=== PATIENT | male | born 1935 | race Caucasian/White ===

== ENCOUNTER 2018-10-23 15:09 | Inpatient (IN) | payer MEDICARE ==
[~2018-10-23] VITALS: Ht 152.4 cm; Wt 59.4 kg
[~2018-10-23 15:09] MED LIST: AMLO10TA4 PO; FLUT1DIS3 INH; LIDO700A4 TD; PANT40TA5 PO
[2018-10-23] MEDS ORDERED: MORPHINE SULFATE 10 MG/ML VIAL. IV ONE ×2 (15:30→17:00)
[2018-10-23] MEDS ORDERED: ONDANSETRON PF 4 MG/2 ML VIAL. IV ONE (15:30)
[2018-10-23 15:38] LABS: BASO # 0.1 x10^3/uL (0.0-0.2); BASO % 1 % (0-3); EOS # 0.2 x10^3/uL (0.0-0.7); EOS % 2 % (0-3); HEMATOCRIT 35.3 % (39.0-53.0); HEMOGLOBIN 11.9 g/dL (13.0-17.5); LYMPH # 1.3 x10^3/uL (1.0-4.8); LYMPH % 16 % (24-48); MEAN CORPUSCULAR HEMOGLOBIN 31 pg (25-35); MEAN CORPUSCULAR HGB CONC 34 g/dL (31-37); MEAN CORPUSCULAR VOLUME 91 fL (79-100); MONO % 11 % (0-9); NEUT % 70 % (31-73); PLATELET COUNT 365 x10^3/uL (140-400); RED BLOOD COUNT 3.87 x10^6/uL (4.30-5.70); RED CELL DISTRIBUTION WIDTH 14.7 % (11.5-14.5); WHITE BLOOD COUNT 8.5 x10^3/uL (4.0-11.0)
[2018-10-23 15:51] LABS: CALCIUM 9.7 mg/dL (8.5-10.1); CREATININE 1.2 mg/dL (0.7-1.3); GFR 58.1; POTASSIUM 4.4 mmol/L (3.5-5.1)
--- NOTE | 2018-10-23 15:55 | RAD ---
PORTABLE CHEST 1V History: Weakness, nausea, abdominal pain Comparison: June 24, 2015 Findings: 2 AP views of the chest are submitted. There is no new lobar consolidation, pleural fluid, pneumothorax. Heart size is stable, within normal limits. There is some atherosclerotic calcification near aortic arch. There is again suspected emphysema. Impression: 1. There is suspected emphysema, no significant infiltrate. Electronically signed by: Zac Meek MD (10/23/2018 3:53 PM) [id number]
[2018-10-23 15:57] LABS: ALBUMIN 2.8 g/dL (3.4-5.0); ALBUMIN/GLOBULIN RATIO 0.5 (1.0-1.7); MAGNESIUM 1.9 mg/dL (1.8-2.4); TOTAL BILIRUBIN 0.5 mg/dL (0.2-1.0)
[2018-10-23 16:03] LABS: CREATINE KINASE 34 U/L (39-308)
--- NOTE | 2018-10-23 16:13 | RAD ---
CT head and cervical spine without contrast History: Fall 3 weeks ago Technique: Noncontrast CT imaging was performed of the head and cervical spine. Multiplanar reconstruction images are submitted. Exposure: One or more of the following individualized dose reduction techniques were utilized for this examination: 1. Automated exposure control 2. Adjustment of the mA and/or kV according to patient size 3. Use of iterative reconstruction technique. Head CT Comparison: October 09, 2014 Findings: No acute intracranial hemorrhage is identified. There is no intra-axial mass effect or midline shift. There is now some encephalomalacia with cortical involvement of the left parietal lobe. There has been progression of multifocal ill-defined low-density of the supratentorial parenchyma bilaterally. There are old lacunar infarcts of the bilateral basal ganglia as seen previously although somewhat more apparent of the left lentiform nucleus on this exam. There is atherosclerotic calcification of the carotid siphons bilaterally. Ventricular size is considered within normal limits. Visualized paranasal sinuses are overall aerated. Mastoid air cells are aerated. No recent calvarial fracture is identified. Impression: 1. There is no evidence of acute intracranial hemorrhage. 2. There is multifocal ill-defined low-density of the supratentorial parenchyma, nonspecific findings probably related to chronic microvascular ischemic disease. 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 Cervical spine CT Comparison: None Findings: No acute cervical spine fracture is identified. Vertebral body stature is overall preserved. There is [id number] reversal of the lordotic curvature centered near C4. There is fairly advanced degenerative disc disease C2-3 through C6-7 with multilevel spondylosis at the same levels. There is likely multilevel borderline central canal stenosis greatest C3-4 through C5-6. There is multilevel facet and uncovertebral degenerative change contributing to multilevel cervical neural foramina compromise. There is more significant narrowing of the bilateral C3-4, C4-C5, C5-C6, C6-7 neural foramina, mild to moderate narrowing on the right at C2-3. Atlanto-axial distance is within normal limits. There is appropriate alignment of lateral masses of C1 relative to C2. Occipital condylar-C1 relationship is maintained. There is some atherosclerotic calcification of the carotid arteries in the neck. There is emphysema of the visualized lung apices, also some subpleural density bilaterally more likely component of fibrotic change. Impression: 1. No acute cervical spine fracture is identified. 2. There is multilevel cervical neural foramina compromise due to multilevel facet and uncovertebral degenerative change. 3. There is multilevel cervical degenerative disc disease and spondylosis. 4. There is emphysema of the visualized lung apices. Electronically signed by: Zac Meek MD (10/23/2018 4:10 PM) [id number]
[2018-10-23] MEDS ORDERED: IV NORMAL SALINE 1000ML BAG 1,000 ML IV ONE ×2 (16:30→17:45)
--- NOTE | 2018-10-23 16:33 | EKG ---
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
[2018-10-23] MEDS ORDERED: CONTRAST GIVEN. MC PRN (16:45)
[2018-10-23] MEDS ORDERED: IOHEXOL 300 MG/ML 100ML VIAL. IV ONE (16:45)
[2018-10-23 16:50] LABS: AMPHETAMINE/METHAMPHETAMINE NEG (NEG); BARBITURATES NEG (NEG); BENZODIAZEPINES NEG (NEG); CANNABINOIDS NEG (NEG); COCAINE NEG (NEG); METHADONE NEG (NEG); OPIATES POS (NEG); PHENCYCLIDINE NEG (NEG)
--- NOTE | 2018-10-23 17:19 | RAD ---
CT abdomen pelvis with contrast dated 10/23/2018. Comparison made to 06/24/2015. CLINICAL INDICATION: Abdominal pain and vomiting. TECHNIQUE: Contiguous axial imaging and pelvis performed after the intravenous administration of 60 cc Omnipaque 300. One or more of the following individualized dose reduction techniques were utilized for this examination: 1. Automated exposure control 2. Adjustment of the mA and/or kV according to patient size 3. Use of iterative reconstruction technique FINDINGS: There is mild inflammatory stranding surrounding the pancreatic body and tail region. There is dilation of the distal pancreatic duct that has progressed from the prior study. There is also mild dilation of the proximal pancreatic duct that is new from prior exam. No definite mass. No adjacent fluid collection. There are couple well-circumscribed low-density foci at the hepatic dome that are unchanged. No biliary ductal dilatation. Gallbladder unremarkable. Spleen is normal in size. Adrenal glands and kidneys are unremarkable. No hydronephrosis. The left kidney is atrophic and there is a 3 mm calcific stone at the lower pole, unchanged. Well-circumscribed low-density foci at the lower pole right kidney, likely cyst. No hydronephrosis. Unopacified GI tract normal in caliber and contour. No focal bowel wall thickening. No inflammatory stranding in the mesentery. The appendix is normal in caliber. No ascites or lymphadenopathy. Abdominal aorta normal in caliber. Images the pelvis show mildly distended urinary bladder. Prostate gland is mildly enlarged. No free pelvic fluid or pelvic lymphadenopathy. Bone windows show no acute findings. Multilevel spondylosis. Limited images of lung bases are clear. Heart size within normal limits. No pleural or pericardial effusion. IMPRESSION: 1. There is mild inflammatory stranding surrounding the pancreas, nonspecific. Could be related to acute pancreatitis. Correlate clinically. 2. Progressive dilation of the pancreatic duct relative to the 2016 exam. This is of uncertain etiology and could be related to chronic pancreatitis. Underlying cystic mass or IPMN not excluded. MRI with and without contrast would better evaluate. 3. Left-sided nephrolithiasis, nonobstructive. 4. Normal appendix. Electronically signed by: Branden Olea MD (10/23/2018 5:16 PM) [facility]
--- NOTE | 2018-10-23 17:36 | PHYS DOC ---
Past Medical History Past Medical History: Arthritis, GERD, High Cholesterol, Hypertension Past Surgical History: Other Additional Past Surgical Histo: Pt had EGD "& no ulcer or anything", TOE, HERNIA Alcohol Use: None Drug Use: None Adult General Chief Complaint Chief Complaint: ABDOMINAL PAIN HPI HPI Recommended. Patient is a 83 year old male with history of hypertension, arthritis, acid reflex, presents to the ED today with multiple complaints. Patient is complaining of generalized abdominal pain with nausea and vomiting for a couple days. He is a poor historian. He states he used to drink but he can't remember the last time he had any alcohol. Denies any diarrhea. Denies any hematemesis or melena. He is also complaining of mild left lateral neck pain, posterior head pain status post falling 3 days ago while changing a tire. Unable to describe the pain. Patient unable to describe anything that alleviates or relieves his symptoms. Patient was brought to the emergency room by EMS, EMS reports patient has a very dirty and unkept home. 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 He states he lives in a makeshift closet. Patient states he has not taken a bath or shower for 8 months. Review of Systems Review of Systems Constitutional: Denies fever or chills [] Eyes: Denies change in visual acuity, redness, or eye pain [] HENT: Denies nasal congestion or sore throat [] Respiratory: Denies cough or shortness of breath [] Cardiovascular: No additional information not addressed in HPI [] GI: Reports abdominal pain, nausea and vomiting, denies bloody stools or diarrhea [] : Denies dysuria or hematuria [] Musculoskeletal: Denies back pain or joint pain [] Integument: Denies rash or skin lesions [] Neurologic: Denies headache, focal weakness or sensory changes [] Psych: Reports living in a dirty environment All other systems were reviewed and found to be within normal limits, except as documented in this note. Current Medications Current Medications Current Medications Medications (Trade) Dose Ordered Sig/Aleksandra Start Time Stop Time Status Last Admin Dose Admin Info (CONTRAST GIVEN -- Rx MONITORING) 1 each PRN DAILY PRN 10/23/18 16:45 10/25/18 16:44 Iohexol (Omnipaque 300 Mg/ml) 60 ml 1X ONCE 10/23/18 16:45 10/23/18 16:46 DC 10/23/18 17:05 60 ML Morphine Sulfate (Morphine Sulfate) 4 mg PRN Q2HR PRN 10/23/18 17:45 10/24/18 17:44 UNV Nitroglycerin (Nitrostat) 0.4 mg PRN Q5MIN PRN 10/23/18 17:45 10/24/18 17:44 UNV Ondansetron HCl (Zofran) 4 mg PRN Q8HRS PRN 10/23/18 17:45 10/24/18 17:44 UNV Sodium Chloride 1,000 ml @ 125 mls/hr 1X ONCE 10/23/18 17:45 10/24/18 01:44 UNV Allergies Allergies Allergies Coded Allergies Type Severity Reaction Last Updated Verified No Known Drug Allergies 08/01/13 No Physical Exam Physical Exam Constitutional: Well developed, well nourished, no acute distress, non-toxic appearance. [] HENT: Normocephalic, atraumatic, bilateral external ears normal, oropharynx moist, no oral exudates, nose normal. [] Eyes: PERRLA, EOMI, conjunctiva normal, no discharge. [] Neck: Normal range of motion, slight paraspinal muscle tenderness on the left cervical spine, no midline cervical spine tenderness, supple, no stridor. [] Cardiovascular:Heart rate regular rhythm, no murmur [] Lungs & Thorax: Bilateral breath sounds clear to auscultation [] Abdomen: Bowel sounds normal, soft, diffuse tenderness throughout the abdomen, no specific point tenderness to the left upper, right lower or right upper quadrant, no masses, no pulsatile masses. [] Skin: Warm, dry, no erythema, no rash. [] Back: No tenderness, no CVA tenderness. [] Extremities: No tenderness, no cyanosis, no clubbing, ROM intact, no edema. [] Neurologic: Alert and oriented X 3, normal motor function, normal sensory function, no focal deficits noted. Cranial nerves II through XII intact Psychologic: Flat affect with depressed mood Current Patient Data Vital Signs Vital Signs Date Time Temp Pulse Resp B/P (MAP) Pulse Ox O2 Delivery O2 Flow Rate FiO2 10/23/18 15:10 98.2 77 18 132/93 (106) 98 Room Air 98.2 Lab Values Laboratory Tests Test 10/23/18 15:25 10/23/18 16:24 White Blood Count 8.5 x10^3/uL (4.0-11.0) Red Blood Count 3.87 x10^6/uL (4.30-5.70) L Hemoglobin 11.9 g/dL (13.0-17.5) L Hematocrit 35.3 % (39.0-53.0) L Mean Corpuscular Volume 91 fL (79-100) Mean Corpuscular Hemoglobin 31 pg (25-35) Mean Corpuscular Hemoglobin Concent 34 g/dL (31-37) Red Cell Distribution Width 14.7 % (11.5-14.5) H Platelet Count 365 x10^3/uL (140-400) Neutrophils (%) (Auto) 70 % (31-73) Lymphocytes (%) (Auto) 16 % (24-48) L Monocytes (%) (Auto) 11 % (0-9) H Eosinophils (%) (Auto) 2 % (0-3) Basophils (%) (Auto) 1 % (0-3) Neutrophils # (Auto) 6.0 x10^3uL (1.8-7.7) Lymphocytes # (Auto) 1.3 x10^3/uL (1.0-4.8) Monocytes # (Auto) 1.0 x10^3/uL (0.0-1.1) Eosinophils # (Auto) 0.2 x10^3/uL (0.0-0.7) Basophils # (Auto) 0.1 x10^3/uL (0.0-0.2) Sodium Level 137 mmol/L (136-145) Potassium Level 4.4 mmol/L (3.5-5.1) Chloride Level 99 mmol/L (98-107) Carbon Dioxide Level 25 mmol/L (21-32) Anion Gap 13 (6-14) Blood Urea Nitrogen 21 mg/dL (8-26) Creatinine 1.2 mg/dL (0.7-1.3) Estimated GFR (Cockcroft-Gault) 58.1 BUN/Creatinine Ratio 18 (6-20) Glucose Level 95 mg/dL (70-99) Calcium Level 9.7 mg/dL (8.5-10.1) Magnesium Level 1.9 mg/dL (1.8-2.4) Total Bilirubin 0.5 mg/dL (0.2-1.0) Aspartate Amino Transferase (AST) 21 U/L (15-37) Alanine Aminotransferase (ALT) 24 U/L (16-63) Alkaline Phosphatase 164 U/L (46-116) H Creatine Kinase 34 U/L (39-308) L Creatine Kinase MB (Mass) 0.6 ng/mL (0.0-3.6) Creatine Kinase MB Relative Index % (0-4) Troponin I Quantitative 0.200 ng/mL (0.000-0.055) DV-Pjh-T-Type Natriuretic Peptide 3447 pg/mL (0-449) H Total Protein 8.0 g/dL (6.4-8.2) Albumin 2.8 g/dL (3.4-5.0) L Albumin/Globulin Ratio 0.5 (1.0-1.7) L Lipase 1778 U/L (73-393) H Thyroid Stimulating Hormone (TSH) 0.829 uIU/mL (0.358-3.74) Urine Opiates Screen Pos (NEG) Urine Methadone Screen Neg (NEG) Urine Barbiturates Neg (NEG) Urine Phencyclidine Screen Neg (NEG) Urine Amphetamine/Methamphetamine Neg (NEG) Urine Benzodiazepines Screen Neg (NEG) Urine Cocaine Screen Neg (NEG) Urine Cannabinoids Screen Neg (NEG) Urine Ethyl Alcohol Neg (NEG) Laboratory Tests 10/23/18 15:25 Laboratory Tests 10/23/18 15:25 EKG EKG [address] Lambert sinus rhythm HR 67 no STEMI[] Radiology/Procedures Radiology/Procedures []PROCEDURE: CT HEAD AND CERVICAL SPINE WO CT head and cervical spine without contrast History: Fall 3 weeks ago Technique: Noncontrast CT imaging was performed of the head and cervical spine. Multiplanar reconstruction images are submitted. Exposure: One or more of the following individualized dose reduction techniques were utilized for this examination: 1. Automated exposure control 2. Adjustment of the mA and/or kV according to patient size 3. Use of iterative reconstruction technique. Head CT Comparison: October 09, 2014 Findings: No acute intracranial hemorrhage is identified. There is no intra-axial mass effect or midline shift. There is now some encephalomalacia with cortical involvement of the left parietal lobe. There has been progression of multifocal ill-defined low-density of the supratentorial parenchyma bilaterally. There are old lacunar infarcts of the bilateral basal ganglia as seen previously although somewhat more apparent of the left lentiform nucleus on this exam. There is atherosclerotic calcification of the carotid siphons bilaterally. Ventricular size is considered within normal limits. Visualized paranasal sinuses are overall aerated. Mastoid air cells are aerated. No recent calvarial fracture is identified. Impression: 1. There is no evidence of acute intracranial hemorrhage. 2. There is multifocal ill-defined low-density of the supratentorial parenchyma, nonspecific findings probably related to chronic microvascular ischemic disease. 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 Cervical spine CT Comparison: None Findings: No acute cervical spine fracture is identified. Vertebral body stature is overall preserved. There is [id number] reversal of the lordotic curvature centered near C4. There is fairly advanced degenerative disc disease C2-3 through C6-7 with multilevel spondylosis at the same levels. There is likely multilevel borderline central canal stenosis greatest C3-4 through C5-6. There is multilevel facet and uncovertebral degenerative change contributing to multilevel cervical neural foramina compromise. There is more significant narrowing of the bilateral C3-4, C4-C5, C5-C6, C6-7 neural foramina, mild to moderate narrowing on the right at C2-3. Atlanto-axial distance is within normal limits. There is appropriate alignment of lateral masses of C1 relative to C2. Occipital condylar-C1 relationship is maintained. There is some atherosclerotic calcification of the carotid arteries in the neck. There is emphysema of the visualized lung apices, also some subpleural density bilaterally more likely component of fibrotic change. Impression: 1. No acute cervical spine fracture is identified. 2. There is multilevel cervical neural foramina compromise due to multilevel facet and uncovertebral degenerative change. 3. There is multilevel cervical degenerative disc disease and spondylosis. 4. There is emphysema of the visualized lung apices. Electronically signed by: Javad Taylor MD (10/23/2018 4:10 PM) [id number] DICTATED and SIGNED BY: JAVAD TAYLOR MD DATE: 10/23/18 1610 PROCEDURE: PORTABLE CHEST 1V PORTABLE CHEST 1V History: Weakness, nausea, abdominal pain Comparison: June 24, 2015 Findings: 2 AP views of the chest are submitted. There is no new lobar consolidation, pleural fluid, pneumothorax. Heart size is stable, within normal limits. There is some atherosclerotic calcification near aortic arch. There is again suspected emphysema. Impression: 1. There is suspected emphysema, no significant infiltrate. Electronically signed by: Javad Taylor MD (10/23/2018 3:53 PM) [id number] DICTATED and SIGNED BY: JAVAD TAYLOR MD DATE: 10/23/18 1553 PROCEDURE: CT ABD PELV W/ IV CONTRST ONLY CT abdomen pelvis with contrast dated 10/23/2018. Comparison made to 06/24/2015. CLINICAL INDICATION: Abdominal pain and vomiting. TECHNIQUE: Contiguous axial imaging and pelvis performed after the intravenous administration of 60 cc Omnipaque 300. One or more of the following individualized dose reduction techniques were utilized for this examination: 1. Automated exposure control 2. Adjustment of the mA and/or kV according to patient size 3. Use of iterative reconstruction technique FINDINGS: There is mild inflammatory stranding surrounding the pancreatic body and tail region. There is dilation of the distal pancreatic duct that has progressed from the prior study. There is also mild dilation of the proximal pancreatic duct that is new from prior exam. No definite mass. No adjacent fluid collection. There are couple well-circumscribed low-density foci at the hepatic dome that are unchanged. No biliary ductal dilatation. Gallbladder unremarkable. Spleen is normal in size. Adrenal glands and kidneys are unremarkable. No hydronephrosis. The left kidney is atrophic and there is a 3 mm calcific stone at the lower pole, unchanged. Well-circumscribed low-density foci at the lower pole right kidney, likely cyst. No hydronephrosis. Unopacified GI tract normal in caliber and contour. No focal bowel wall thickening. No inflammatory stranding in the mesentery. The appendix is normal in caliber. No ascites or lymphadenopathy. Abdominal aorta normal in caliber. Images the pelvis show mildly distended urinary bladder. Prostate gland is mildly enlarged. No free pelvic fluid or pelvic lymphadenopathy. Bone windows show no acute findings. Multilevel spondylosis. Limited images of lung bases are clear. Heart size within normal limits. No pleural or pericardial effusion. IMPRESSION: 1. There is mild inflammatory stranding surrounding the pancreas, nonspecific. Could be related to acute pancreatitis. Correlate clinically. 2. Progressive dilation of the pancreatic duct relative to the 2016 exam. This is of uncertain etiology and could be related to chronic pancreatitis. Underlying cystic mass or IPMN not excluded. MRI with and without contrast would better evaluate. 3. Left-sided nephrolithiasis, nonobstructive. 4. Normal appendix. Electronically signed by: Branden Olea MD (10/23/2018 5:16 PM) [facility] DICTATED and SIGNED BY: BRANDEN OLEA MD DATE: 10/23/18 4487 Course & Med Decision Making Course & Med Decision Making Pertinent Labs and Imaging studies reviewed. (See chart for details) This is a 83-year-old male patient presenting to the ED today from home with multiple complaints including abdominal pain, nausea, vomiting also complaining of neck and head pain status post falling. No loss of consciousness. Fell 3 weeks ago. Also complaining to be living in a dirty environmental. Has not taken a shower for 8 month See history of present illness. CT of the head and cervical spine are negative. CBC within normal WBC. CMP with no acute findings, lipase 1778, troponin 0.200, patient's previous history shows elevated troponin. He has no chest pain. EKG was negative. Given aspirin and routine consult placed for cardiology CT of the abdomen and pelvic was noted for acute or chronic pancreatitis Negative alcohol in the drug screen. Routine consult placed for GI. Started on IV fluids. Consulted with Dr. Mcnulty who accepted patient for admission Routine consult placed for social insurance analyst Dragon Disclaimer Dragon Disclaimer This electronic medical record was generated, in whole or in part, using a voice recognition dictation system. Departure Departure Impression: Primary Impression: Acute prostatitis Additional Impressions: Need for social insurance analyst intervention Acute cervical sprain Scalp contusion Nausea and vomiting NSTEMI (non-ST elevated myocardial infarction) Disposition: ADMITTED INPATIENT Condition: STABLE (treatment coming up on Monday as she is well aware) Referrals: COLT JAMESON DO (PCP) Problem Qualifiers Additional Impressions: Acute cervical sprain Encounter type: initial encounter Qualified Codes: S13.9XXA - Sprain of joints and ligaments of unspecified parts of neck, initial encounter Scalp contusion Encounter type: initial encounter Qualified Codes: S00.03XA - Contusion of scalp, initial encounter Nausea and vomiting Vomiting type: unspecified Vomiting Intractability: non-intractable Qualified Codes: R11.2 - Nausea with vomiting, unspecified MUTUNGA,SHERLEY CUSTOMER SERVICE PROFESSIONAL October 23, 2018 17:36
[2018-10-23] MEDS ORDERED: ONDANSETRON PF 4 MG/2 ML VIAL. IV PRN (17:45)
[2018-10-23] MEDS ORDERED: NITROGLYCERIN SUBLINGUAL 0.4 MG BOTTLE OF 25. SL PRN (17:45)
[2018-10-23] MEDS ORDERED: ASPIRIN 325 MG TABLET PO ONE (18:15)
[2018-10-23] MEDS: MORPHINE SULFATE 4 MG/ML VIAL. IV PRN (18:45)
[2018-10-23 19:57] VITALS: BP 128/74
[2018-10-23 23:09] VITALS: BP 175/75
[2018-10-24] MEDS: MORPHINE SULFATE 4 MG/ML VIAL. IV PRN ×2 (00:15→20:02)
[2018-10-24 03:15] VITALS: BP 130/79
[2018-10-24 06:48] LABS: BASO # 0.1 x10^3/uL (0.0-0.2); BASO % 1 % (0-3); EOS # 0.3 x10^3/uL (0.0-0.7); EOS % 4 % (0-3); HEMATOCRIT 36.5 % (39.0-53.0); HEMOGLOBIN 12.3 g/dL (13.0-17.5); LYMPH % 26 % (24-48); MEAN CORPUSCULAR HEMOGLOBIN 31 pg (25-35); MEAN CORPUSCULAR HGB CONC 34 g/dL (31-37); MEAN CORPUSCULAR VOLUME 92 fL (79-100); MONO # 0.8 x10^3/uL (0.0-1.1); MONO % 11 % (0-9); NEUT # 4.4 x10^3uL (1.8-7.7); NEUT % 58 % (31-73); PLATELET COUNT 351 x10^3/uL (140-400); RED BLOOD COUNT 3.96 x10^6/uL (4.30-5.70); RED CELL DISTRIBUTION WIDTH 14.7 % (11.5-14.5); WHITE BLOOD COUNT 7.6 x10^3/uL (4.0-11.0)
[2018-10-24 07:15] VITALS: BP 134/77
[2018-10-24 07:54] LABS: ALBUMIN 2.7 g/dL (3.4-5.0); TOTAL PROTEIN 7.7 g/dL (6.4-8.2)
[2018-10-24 07:55] LABS: ALBUMIN/GLOBULIN RATIO 0.5 (1.0-1.7); CALCIUM 9.6 mg/dL (8.5-10.1); CREATININE 1.1 mg/dL (0.7-1.3); GFR 64.2; POTASSIUM 4.1 mmol/L (3.5-5.1); TOTAL BILIRUBIN 0.5 mg/dL (0.2-1.0)
[2018-10-24] MEDS ORDERED: ACETAMINOPHEN 500 MG TABLET PO PRN (08:30)
[2018-10-24 08:43] LABS: CHOLESTEROL/HDL RATIO 6.5
--- NOTE | 2018-10-24 09:55 | PDOC2 ---
GI CONSULT Reason For Consult: Pancreatitis HPI: HPI: 83 y/o male admitted through ER, sometimes difficult to understand, limited history this morning - he spent some time showing me records from previous hospitalization in 2015. He can't tell me much about his medical history otherwise and is not sure what medications he takes. He reports "all over pain" and retching "for quite some time." He says he hasn't had a bowel movement for months. He jarrett a [place] on a piece of paper with three Xs in the middle and said "this is probably where the ulcers are." Dr. Pickard has seen in the past re: possible chronic pancreatitis, mildly elevated lipase, abd pain, and abnormal pancreas findings on CT. CA19-9 was mildly elevated (59) and further outpt evaluation was recommended w/ EUS. I do not believe this was done. This time, lipase [address] notes nonspecific pancreatic inflammation w/ progressive dilatation of PD. PMH: PMH: per chart - HTN, HLD, bronchitis, COPD, GERD, pancreatitis, nephrolithiasis, ?RA tonsillectomy, cataract removal Social History: Smoke: <1 pack per day ALCOHOL: other ("none for 30 years") Drugs: None ROS: Per HPI. Vitals: Vitals: Vital Signs Date Time Temp Pulse Resp B/P (MAP) Pulse Ox O2 Delivery O2 Flow Rate FiO2 10/24/18 07:15 98.1 61 18 134/77 (96) 93 Room Air 98.1 Labs: Labs: Laboratory Tests Test 10/23/18 15:25 10/23/18 16:24 10/23/18 18:40 10/23/18 21:40 White Blood Count 8.5 x10^3/uL (4.0-11.0) Red Blood Count 3.87 x10^6/uL (4.30-5.70) Hemoglobin 11.9 g/dL (13.0-17.5) Hematocrit 35.3 % (39.0-53.0) Mean Corpuscular Volume 91 fL (79-100) Mean Corpuscular Hemoglobin 31 pg (25-35) Mean Corpuscular Hemoglobin Concent 34 g/dL (31-37) Red Cell Distribution Width 14.7 % (11.5-14.5) Platelet Count 365 x10^3/uL (140-400) Neutrophils (%) (Auto) 70 % (31-73) Lymphocytes (%) (Auto) 16 % (24-48) Monocytes (%) (Auto) 11 % (0-9) Eosinophils (%) (Auto) 2 % (0-3) Basophils (%) (Auto) 1 % (0-3) Neutrophils # (Auto) 6.0 x10^3uL (1.8-7.7) Lymphocytes # (Auto) 1.3 x10^3/uL (1.0-4.8) Monocytes # (Auto) 1.0 x10^3/uL (0.0-1.1) Eosinophils # (Auto) 0.2 x10^3/uL (0.0-0.7) Basophils # (Auto) 0.1 x10^3/uL (0.0-0.2) Sodium Level 137 mmol/L (136-145) Potassium Level 4.4 mmol/L (3.5-5.1) Chloride Level 99 mmol/L (98-107) Carbon Dioxide Level 25 mmol/L (21-32) Anion Gap 13 (6-14) Blood Urea Nitrogen 21 mg/dL (8-26) Creatinine 1.2 mg/dL (0.7-1.3) Estimated GFR (Cockcroft-Gault) 58.1 BUN/Creatinine Ratio 18 (6-20) Glucose Level 95 mg/dL (70-99) Calcium Level 9.7 mg/dL (8.5-10.1) Magnesium Level 1.9 mg/dL (1.8-2.4) Total Bilirubin 0.5 mg/dL (0.2-1.0) Aspartate Amino Transf (AST/SGOT) 21 U/L (15-37) Alanine Aminotransferase (ALT/SGPT) 24 U/L (16-63) Alkaline Phosphatase 164 U/L (46-116) Creatine Kinase 34 U/L (39-308) Creatine Kinase MB (Mass) 0.6 ng/mL (0.0-3.6) Creatine Kinase MB Relative Index % (0-4) Troponin I Quantitative 0.200 ng/mL (0.000-0.055) 0.245 ng/mL (0.000-0.055) 0.137 ng/mL (0.000-0.055) PM-Goy-H-Type Natriuretic Peptide 3447 pg/mL (0-449) Total Protein 8.0 g/dL (6.4-8.2) Albumin 2.8 g/dL (3.4-5.0) Albumin/Globulin Ratio 0.5 (1.0-1.7) Lipase 1778 U/L (73-393) Thyroid Stimulating Hormone (TSH) 0.829 uIU/mL (0.358-3.74) Urine Opiates Screen Pos (NEG) Urine Methadone Screen Neg (NEG) Urine Barbiturates Neg (NEG) Urine Phencyclidine Screen Neg (NEG) Urine Amphetamine/Methamphetamine Neg (NEG) Urine Benzodiazepines Screen Neg (NEG) Urine Cocaine Screen Neg (NEG) Urine Cannabinoids Screen Neg (NEG) Urine Ethyl Alcohol Neg (NEG) Test 10/24/18 05:40 White Blood Count 7.6 x10^3/uL (4.0-11.0) Red Blood Count 3.96 x10^6/uL (4.30-5.70) Hemoglobin 12.3 g/dL (13.0-17.5) Hematocrit 36.5 % (39.0-53.0) Mean Corpuscular Volume 92 fL (79-100) Mean Corpuscular Hemoglobin 31 pg (25-35) Mean Corpuscular Hemoglobin Concent 34 g/dL (31-37) Red Cell Distribution Width 14.7 % (11.5-14.5) Platelet Count 351 x10^3/uL (140-400) Neutrophils (%) (Auto) 58 % (31-73) Lymphocytes (%) (Auto) 26 % (24-48) Monocytes (%) (Auto) 11 % (0-9) Eosinophils (%) (Auto) 4 % (0-3) Basophils (%) (Auto) 1 % (0-3) Neutrophils # (Auto) 4.4 x10^3uL (1.8-7.7) Lymphocytes # (Auto) 2.0 x10^3/uL (1.0-4.8) Monocytes # (Auto) 0.8 x10^3/uL (0.0-1.1) Eosinophils # (Auto) 0.3 x10^3/uL (0.0-0.7) Basophils # (Auto) 0.1 x10^3/uL (0.0-0.2) Sodium Level 139 mmol/L (136-145) Potassium Level 4.1 mmol/L (3.5-5.1) Chloride Level 102 mmol/L (98-107) Carbon Dioxide Level 21 mmol/L (21-32) Anion Gap 16 (6-14) Blood Urea Nitrogen 20 mg/dL (8-26) Creatinine 1.1 mg/dL (0.7-1.3) Estimated GFR (Cockcroft-Gault) 64.2 BUN/Creatinine Ratio 18 (6-20) Glucose Level 77 mg/dL (70-99) Calcium Level 9.6 mg/dL (8.5-10.1) Total Bilirubin 0.5 mg/dL (0.2-1.0) Aspartate Amino Transf (AST/SGOT) 21 U/L (15-37) Alanine Aminotransferase (ALT/SGPT) 22 U/L (16-63) Alkaline Phosphatase 151 U/L (46-116) Total Protein 7.7 g/dL (6.4-8.2) Albumin 2.7 g/dL (3.4-5.0) Albumin/Globulin Ratio 0.5 (1.0-1.7) Triglycerides Level 141 mg/dL (0-150) Cholesterol Level 194 mg/dL (0-200) LDL Cholesterol, Calculated 136 mg/dL (0-100) VLDL Cholesterol, Calculated 28 mg/dL (0-40) Non-HDL Cholesterol Calculated 164 mg/dL (0-129) HDL Cholesterol 30 mg/dL (40-60) Cholesterol/HDL Ratio 6.5 Allergies: Coded Allergies: No Known Drug Allergies (Unverified , 08/01/13) Medications: Current Medications Medications (Trade) Dose Ordered Sig/Aleksandra Route PRN Reason Start Time Stop Time Status Last Admin Dose Admin Morphine Sulfate (Morphine Sulfate) 5 mg 1X ONCE IV 10/23/18 15:30 10/23/18 15:31 DC 10/23/18 15:36 Ondansetron HCl (Zofran) 4 mg 1X ONCE IV 10/23/18 15:30 10/23/18 15:31 DC 10/23/18 15:35 Sodium Chloride 1,000 ml @ 1,000 mls/hr 1X ONCE IV 10/23/18 16:30 10/23/18 17:29 DC 10/23/18 16:54 Morphine Sulfate (Morphine Sulfate) 5 mg 1X ONCE IV 10/23/18 17:00 10/23/18 17:01 DC 10/23/18 16:56 Iohexol (Omnipaque 300 Mg/ml) 60 ml 1X ONCE IV 10/23/18 16:45 10/23/18 16:46 DC 10/23/18 17:05 Morphine Sulfate (Morphine Sulfate) 4 mg PRN Q2HR PRN IV PAIN 10/23/18 17:45 10/24/18 17:44 10/24/18 00:15 Sodium Chloride 1,000 ml @ 125 mls/hr 1X ONCE IV 10/23/18 17:45 10/24/18 01:44 DC 10/23/18 18:45 Aspirin (Dionne Aspirin) 325 mg 1X ONCE PO 10/23/18 18:15 10/23/18 18:16 DC 10/23/18 18:45 Imaging: Imaging: Head/C spine CT Impression: 1. There is no evidence of acute intracranial hemorrhage. 2. There is multifocal ill-defined low-density of the supratentorial parenchyma, nonspecific findings probably related to chronic microvascular ischemic disease. 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 Impression: 1. No acute cervical spine fracture is identified. 2. There is multilevel cervical neural foramina compromise due to multilevel facet and uncovertebral degenerative change. 3. There is multilevel cervical degenerative disc disease and spondylosis. 4. There is emphysema of the visualized lung apices. CXR Impression: 1. There is suspected emphysema, no significant infiltrate. CT A/P IMPRESSION: 1. There is mild inflammatory stranding surrounding the pancreas, nonspecific. Could be related to acute pancreatitis. Correlate clinically. 2. Progressive dilation of the pancreatic duct relative to the 2016 exam. This is of uncertain etiology and could be related to chronic pancreatitis. Underlying cystic mass or IPMN not excluded. MRI with and without contrast would better evaluate. 3. Left-sided nephrolithiasis, nonobstructive. 4. Normal appendix. PE: GEN: NAD. thin HEENT: Atraumatic, PERRL LUNGS: wet cough HEART: RRR ABD: quiet, soft, not particularly tender EXTREMITY: No edema SKIN: No rashes, no jaundice NEURO/PSYCH: suspect some confusion A/P: A/P: Abd pain, retching Elevated lipase, abnormal pancreas imaging Normocytic anemia, elevated troponin ?h/o ulcer Dementia, debility -- Okay to try LYNETTE olivier - d/w RN. Empiric PPI, Miralax. Outpt MRCP and/or EUS as recommended in the past. SUZANNE ARCHER October 24, 2018 09:55
--- NOTE | 2018-10-24 10:19 | PDOC2 ---
DREW CHADWICK APRN 10/24/18 1019: CARDIAC CONSULT DATE OF CONSULT Date of Consult DATE: 10/24/18 TIME: 10:11 REASON FOR CONSULT Reason for Consult: Chronic elevated troponin REFERRING PHYSICIAN Referring Physician: Rebecca Zambrano APRN SOURCE Source: Chart review, Patient HISTORY OF PRESENT ILLNESS HISTORY OF PRESENT ILLNESS This is an 83 yo male, with a history of pancreatitis, who presented secondary to abdominal pain and nausea/vomiting. Troponin noted to be elevated, which prompted this consult. Patient denies any chest pain, palpitations, dizziness, SOA, LE edema, or orthopnea. PAST MEDICAL HISTORY Cardiovascular: CHF, HTN, Hyperlipidemia Pulmonary: COPD CENTRAL NERVOUS SYSTEM: TIA GI: GERD Hepatobiliary: Other (pancreatitis ) Musculoskeletal: Osteoarthritis PAST SURGICAL HISTORY Past Surgical History: Cataract Removal, Hernia Repair, Tonsillectomy FAMILY HISTORY Family History: Hypertension SOCIAL HISTORY Smoke: <1 pack per day ALCOHOL: none Drugs: None Lives: with Family CURRENT MEDICATIONS CURRENT MEDICATIONS Current Medications Medications (Trade) Dose Ordered Sig/Aleksandra Route PRN Reason Start Time Stop Time Status Last Admin Dose Admin Morphine Sulfate (Morphine Sulfate) 5 mg 1X ONCE IV 10/23/18 15:30 10/23/18 15:31 DC 10/23/18 15:36 Ondansetron HCl (Zofran) 4 mg 1X ONCE IV 10/23/18 15:30 10/23/18 15:31 DC 10/23/18 15:35 Sodium Chloride 1,000 ml @ 1,000 mls/hr 1X ONCE IV 10/23/18 16:30 10/23/18 17:29 DC 10/23/18 16:54 Morphine Sulfate (Morphine Sulfate) 5 mg 1X ONCE IV 10/23/18 17:00 10/23/18 17:01 DC 10/23/18 16:56 Iohexol (Omnipaque 300 Mg/ml) 60 ml 1X ONCE IV 10/23/18 16:45 10/23/18 16:46 DC 10/23/18 17:05 Morphine Sulfate (Morphine Sulfate) 4 mg PRN Q2HR PRN IV PAIN 10/23/18 17:45 10/24/18 17:44 10/24/18 00:15 Sodium Chloride 1,000 ml @ 125 mls/hr 1X ONCE IV 10/23/18 17:45 10/24/18 01:44 DC 10/23/18 18:45 Aspirin (Dionne Aspirin) 325 mg 1X ONCE PO 10/23/18 18:15 10/23/18 18:16 DC 10/23/18 18:45 ALLERGIES ALLERGIES: Coded Allergies: No Known Drug Allergies (Unverified , 08/01/13) ROS Review of System 14 point ROS conducted with pertinent positives noted above in HPI. PHYSICAL EXAM General: Alert, Oriented X3, Cooperative, No acute distress HEENT: Atraumatic Lungs: Clear to auscultation, Normal air movement Heart: Regular rate, Normal S1, Normal S2, Other (2/6 systolic murmur ) Extremities: No edema, Normal pulses Skin: No significant lesion Neuro: Normal speech, Sensation intact Psych/Mental Status: Mental status NL, Mood NL MUSCULOSKELETAL: Osteoarthritic changes both hands VITALS VITALS Vital Signs Date Time Temp Pulse Resp B/P (MAP) Pulse Ox O2 Delivery O2 Flow Rate FiO2 10/24/18 08:00 Room Air 10/24/18 07:15 98.1 61 18 134/77 (96) 93 98.1 LABS Lab: Laboratory Tests Test 10/23/18 15:25 10/23/18 16:24 10/23/18 18:40 10/23/18 21:40 White Blood Count 8.5 x10^3/uL (4.0-11.0) Red Blood Count 3.87 x10^6/uL (4.30-5.70) Hemoglobin 11.9 g/dL (13.0-17.5) Hematocrit 35.3 % (39.0-53.0) Mean Corpuscular Volume 91 fL (79-100) Mean Corpuscular Hemoglobin 31 pg (25-35) Mean Corpuscular Hemoglobin Concent 34 g/dL (31-37) Red Cell Distribution Width 14.7 % (11.5-14.5) Platelet Count 365 x10^3/uL (140-400) Neutrophils (%) (Auto) 70 % (31-73) Lymphocytes (%) (Auto) 16 % (24-48) Monocytes (%) (Auto) 11 % (0-9) Eosinophils (%) (Auto) 2 % (0-3) Basophils (%) (Auto) 1 % (0-3) Neutrophils # (Auto) 6.0 x10^3uL (1.8-7.7) Lymphocytes # (Auto) 1.3 x10^3/uL (1.0-4.8) Monocytes # (Auto) 1.0 x10^3/uL (0.0-1.1) Eosinophils # (Auto) 0.2 x10^3/uL (0.0-0.7) Basophils # (Auto) 0.1 x10^3/uL (0.0-0.2) Sodium Level 137 mmol/L (136-145) Potassium Level 4.4 mmol/L (3.5-5.1) Chloride Level 99 mmol/L (98-107) Carbon Dioxide Level 25 mmol/L (21-32) Anion Gap 13 (6-14) Blood Urea Nitrogen 21 mg/dL (8-26) Creatinine 1.2 mg/dL (0.7-1.3) Estimated GFR (Cockcroft-Gault) 58.1 BUN/Creatinine Ratio 18 (6-20) Glucose Level 95 mg/dL (70-99) Calcium Level 9.7 mg/dL (8.5-10.1) Magnesium Level 1.9 mg/dL (1.8-2.4) Total Bilirubin 0.5 mg/dL (0.2-1.0) Aspartate Amino Transf (AST/SGOT) 21 U/L (15-37) Alanine Aminotransferase (ALT/SGPT) 24 U/L (16-63) Alkaline Phosphatase 164 U/L (46-116) Creatine Kinase 34 U/L (39-308) Creatine Kinase MB (Mass) 0.6 ng/mL (0.0-3.6) Creatine Kinase MB Relative Index % (0-4) Troponin I Quantitative 0.200 ng/mL (0.000-0.055) 0.245 ng/mL (0.000-0.055) 0.137 ng/mL (0.000-0.055) MC-Fci-Q-Type Natriuretic Peptide 3447 pg/mL (0-449) Total Protein 8.0 g/dL (6.4-8.2) Albumin 2.8 g/dL (3.4-5.0) Albumin/Globulin Ratio 0.5 (1.0-1.7) Lipase 1778 U/L (73-393) Thyroid Stimulating Hormone (TSH) 0.829 uIU/mL (0.358-3.74) Urine Opiates Screen Pos (NEG) Urine Methadone Screen Neg (NEG) Urine Barbiturates Neg (NEG) Urine Phencyclidine Screen Neg (NEG) Urine Amphetamine/Methamphetamine Neg (NEG) Urine Benzodiazepines Screen Neg (NEG) Urine Cocaine Screen Neg (NEG) Urine Cannabinoids Screen Neg (NEG) Urine Ethyl Alcohol Neg (NEG) Test 10/24/18 05:40 White Blood Count 7.6 x10^3/uL (4.0-11.0) Red Blood Count 3.96 x10^6/uL (4.30-5.70) Hemoglobin 12.3 g/dL (13.0-17.5) Hematocrit 36.5 % (39.0-53.0) Mean Corpuscular Volume 92 fL (79-100) Mean Corpuscular Hemoglobin 31 pg (25-35) Mean Corpuscular Hemoglobin Concent 34 g/dL (31-37) Red Cell Distribution Width 14.7 % (11.5-14.5) Platelet Count 351 x10^3/uL (140-400) Neutrophils (%) (Auto) 58 % (31-73) Lymphocytes (%) (Auto) 26 % (24-48) Monocytes (%) (Auto) 11 % (0-9) Eosinophils (%) (Auto) 4 % (0-3) Basophils (%) (Auto) 1 % (0-3) Neutrophils # (Auto) 4.4 x10^3uL (1.8-7.7) Lymphocytes # (Auto) 2.0 x10^3/uL (1.0-4.8) Monocytes # (Auto) 0.8 x10^3/uL (0.0-1.1) Eosinophils # (Auto) 0.3 x10^3/uL (0.0-0.7) Basophils # (Auto) 0.1 x10^3/uL (0.0-0.2) Sodium Level 139 mmol/L (136-145) Potassium Level 4.1 mmol/L (3.5-5.1) Chloride Level 102 mmol/L (98-107) Carbon Dioxide Level 21 mmol/L (21-32) Anion Gap 16 (6-14) Blood Urea Nitrogen 20 mg/dL (8-26) Creatinine 1.1 mg/dL (0.7-1.3) Estimated GFR (Cockcroft-Gault) 64.2 BUN/Creatinine Ratio 18 (6-20) Glucose Level 77 mg/dL (70-99) Calcium Level 9.6 mg/dL (8.5-10.1) Total Bilirubin 0.5 mg/dL (0.2-1.0) Aspartate Amino Transf (AST/SGOT) 21 U/L (15-37) Alanine Aminotransferase (ALT/SGPT) 22 U/L (16-63) Alkaline Phosphatase 151 U/L (46-116) Total Protein 7.7 g/dL (6.4-8.2) Albumin 2.7 g/dL (3.4-5.0) Albumin/Globulin Ratio 0.5 (1.0-1.7) Triglycerides Level 141 mg/dL (0-150) Cholesterol Level 194 mg/dL (0-200) LDL Cholesterol, Calculated 136 mg/dL (0-100) VLDL Cholesterol, Calculated 28 mg/dL (0-40) Non-HDL Cholesterol Calculated 164 mg/dL (0-129) HDL Cholesterol 30 mg/dL (40-60) Cholesterol/HDL Ratio 6.5 ECHOCARDIOGRAM ECHOCARDIOGRAM <Conclusion> Left ventricle systolic function is mildly to moderately impaired. The Ejection Fraction is 40%. The right ventricle is normal size. The left atrium size is normal. The right atrium size is normal. The aortic valve is normal in structure and function. Doppler and Color Flow revealed mild mitral regurgitation. Doppler and Color Flow revealed trace tricuspid regurgitation. The PA pressure was estimated at 36 mmHg. Doppler and Color Flow revealed mild pulmonic valvular regurgitation. DATE: 06/25/15 1738 STRESS TEST STRESS TEST Conclusion 1. No electrocardiographic changes suggestive of myocardial ischemia with pharmacological stress. 2. No perfusion defects to suggest myocardial ischemia or scar. 3. Normal wall thickening but to decrease wall motion throughout the myocardium with an ejection fraction of 45%. 4. Scan indicates low risk for future cardiac events. DATE: 09/22/14 1658 ASSESSMENT/PLAN ASSESSMENT/PLAN 1. Abdominal pain, nausea/vomiting 2. Acute on chronic pancreatitis 3. Accelerated hypertension; now better controlled 4. Elevated troponin; peak 0.245. Most probably type II, demand ischemia in the setting of acute pancreatitis and accelerated HTN 5. Chronic systolic HF; clinically compensated 6. Cardiomyopathy; LVEF 40% (2016). Initially noted in 2014 and underwent stress test at that time, which was unremarkable for ischemia 7. Hyperlipidemia; LDL 136 Recommendations Echo to assess LV systolic function Follow GI recs Consider outpatient ischemic evaluation Supportive care MICHELLE RIVERO MD 10/24/18 1900: CARDIAC CONSULT ASSESSMENT/PLAN ASSESSMENT/PLAN Pt. seen and examined. agree with above RO[facility] [employer] note. DREW CHADWICK APRN October 24, 2018 10:19 MICHELLE RIVERO MD October 24, 2018 19:00
--- NOTE | 2018-10-24 10:23 | PDOC1 ---
History and Physical Date of Admission Date of Admission DATE: 10/24/18 TIME: 10:17 Identification/Chief Complaint Chief Complaint Abdominal pain, unkempt Source Source: Caregiver, Chart review, Patient History of Present Illness History of Present Illness He is not the best historian. He is an 83-year-old male who takes care of his 40 something year old daughter who is blind from glaucoma, and pretty much on disability. 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 For some reason, he ended up in the ER, abdominal pains, very unkempt and claims that he has not bathed for 8 months. He says he lost track of time or is not sure why he has not bathed for that duration of time. He was cleaned up and I'm seeing him on first day of hospitalization no foul smell and looks pretty clean. Minimal abdominal pain, no nausea, vomiting. Claims does not drink alcohol. Nondiabetic and nonobese with a BMI 19. Lipase elevated over 1000 with mild stranding around the pancreas on CAT scan hence admitted for acute pancreatitis with consults to GI put in by ER. Patient currently is watching TV, comfortable and no complaints. I tried to explain his diagnoses are plan of care I have my doubts that he actually is understanding what I say. HE does not take any meds at home Past Medical History Cardiovascular: HTN, Hyperlipidemia Pulmonary: Bronchitis, COPD GI: GERD, Other Rheumatologic: Rheumatoid arthritis, Other Past Surgical History Past Surgical History: Cataract Removal, Hernia Repair, Tonsillectomy, Other Family History Family History: Diabetes Social History Smoke: No ALCOHOL: none Drugs: None Current Problem List Problem List Problems Medical Problems: (1) Acute cervical sprain Status: Acute (2) Acute prostatitis Status: Acute (3) Nausea and vomiting Status: Acute (4) Need for social services aide intervention Status: Acute (5) NSTEMI (non-ST elevated myocardial infarction) Status: Acute (6) Scalp contusion Status: Acute Current Medications Current Medications Current Medications Morphine Sulfate (Morphine Sulfate) 5 mg 1X ONCE IV Last administered on 10/23/18at 15:36; Start 10/23/18 at 15:30; Stop 10/23/18 at 15:31; Status DC Ondansetron HCl (Zofran) 4 mg 1X ONCE IV Last administered on 10/23/18at 15:35; Start 10/23/18 at 15:30; Stop 10/23/18 at 15:31; Status DC Sodium Chloride 1,000 ml @ 1,000 mls/hr 1X ONCE IV Last administered on 10/23/18at 16:54; Start 10/23/18 at 16:30; Stop 10/23/18 at 17:29; Status DC Morphine Sulfate (Morphine Sulfate) 5 mg 1X ONCE IV Last administered on 10/23/18at 16:56; Start 10/23/18 at 17:00; Stop 10/23/18 at 17:01; Status DC Iohexol (Omnipaque 300 Mg/ml) 60 ml 1X ONCE IV Last administered on 10/23/18at 17:05; Start 10/23/18 at 16:45; Stop 10/23/18 at 16:46; Status DC Info (CONTRAST GIVEN -- Rx MONITORING) 1 each PRN DAILY PRN MC SEE COMMENTS; Start 10/23/18 at 16:45; Stop 10/25/18 at 16:44 Ondansetron HCl (Zofran) 4 mg PRN Q8HRS PRN IV NAUSEA/VOMITING; Start 10/23/18 at 17:45; Stop 10/24/18 at 08:19; Status DC Morphine Sulfate (Morphine Sulfate) 4 mg PRN Q2HR PRN IV PAIN Last administered on 10/24/18at 00:15; Start 10/23/18 at 17:45; Stop 10/24/18 at 17:44 Nitroglycerin (Nitrostat) 0.4 mg PRN Q5MIN PRN SL CHEST PAIN; Start 10/23/18 at 17:45; Stop 10/24/18 at 17:44 Sodium Chloride 1,000 ml @ 125 mls/hr 1X ONCE IV Last administered on 10/23/18at 18:45; Start 10/23/18 at 17:45; Stop 10/24/18 at 01:44; Status DC Aspirin (Dionne Aspirin) 325 mg 1X ONCE PO Last administered on 10/23/18at 18 :45; Start 10/23/18 at 18:15; Stop 10/23/18 at 18:16; Status DC Ondansetron HCl (Zofran) 4 mg PRN Q6HRS PRN IV NAUSEA/VOMITING; Start 10/24/18 at 08:30 Acetaminophen (Tylenol) 500 mg PRN Q6HRS PRN PO MILD PAIN / TEMP; Start 10/24/18 at 08:30 Sodium Chloride 1,000 ml @ 80 mls/hr [id number] IV ; Start 10/24/18 at 08:30 Active Scripts Active Lidoderm (Lidocaine) 1 Patch Patch 1 Patch TD DAILY Advair 250-50 Diskus (Fluticasone/Salmeterol) 1 Puff Puff 1 Puff INH BID Norvasc (Amlodipine Besylate) 10 Mg Tablet 10 Mg PO DAILY Reported Pantoprazole Sodium 40 Mg Tablet. 40 Mg PO DAILY Allergies Allergies: Coded Allergies: No Known Drug Allergies (Unverified , 08/01/13) ROS Review of System Limited ROS but he denies all 14 point systems were reviewed with him - then again not the best historian Physical Exam General: Alert, Oriented X3, Cooperative, No acute distress HEENT: Atraumatic, PERRLA, EOMI Lungs: Clear to auscultation, Normal air movement Heart: S1S2, RRR, no thrills, no rubs, no gallops, no murmurs, no jug vein distention Cardiovascular: S1, S2 Abdomen: Normal bowel sounds, Soft, No tenderness, No hepatosplenomegaly, No masses Male Genitals Exam: normal genitalia, normal prostate Rectal Exam: not examined Extremities: No clubbing, No cyanosis, No edema, Normal pulses, No tenderness/swelling Skin: No rashes, No breakdown, No significant lesion Neuro: Normal gait, Normal speech, Strength at 5/5 X4 ext, Normal tone, Sensation intact, Cranial nerves 3-12 NL, Reflexes 2+ Psych/Mental Status: Mental status NL, Mood NL Vitals Vitals Vital Signs Date Time Temp Pulse Resp B/P (MAP) Pulse Ox O2 Delivery O2 Flow Rate FiO2 10/24/18 08:00 Room Air 10/24/18 07:15 98.1 61 18 134/77 (96) 93 98.1 Labs Labs Laboratory Tests Test 10/23/18 15:25 10/23/18 16:24 10/23/18 18:40 10/23/18 21:40 White Blood Count 8.5 x10^3/uL (4.0-11.0) Red Blood Count 3.87 x10^6/uL (4.30-5.70) Hemoglobin 11.9 g/dL (13.0-17.5) Hematocrit 35.3 % (39.0-53.0) Mean Corpuscular Volume 91 fL (79-100) Mean Corpuscular Hemoglobin 31 pg (25-35) Mean Corpuscular Hemoglobin Concent 34 g/dL (31-37) Red Cell Distribution Width 14.7 % (11.5-14.5) Platelet Count 365 x10^3/uL (140-400) Neutrophils (%) (Auto) 70 % (31-73) Lymphocytes (%) (Auto) 16 % (24-48) Monocytes (%) (Auto) 11 % (0-9) Eosinophils (%) (Auto) 2 % (0-3) Basophils (%) (Auto) 1 % (0-3) Neutrophils # (Auto) 6.0 x10^3uL (1.8-7.7) Lymphocytes # (Auto) 1.3 x10^3/uL (1.0-4.8) Monocytes # (Auto) 1.0 x10^3/uL (0.0-1.1) Eosinophils # (Auto) 0.2 x10^3/uL (0.0-0.7) Basophils # (Auto) 0.1 x10^3/uL (0.0-0.2) Sodium Level 137 mmol/L (136-145) Potassium Level 4.4 mmol/L (3.5-5.1) Chloride Level 99 mmol/L (98-107) Carbon Dioxide Level 25 mmol/L (21-32) Anion Gap 13 (6-14) Blood Urea Nitrogen 21 mg/dL (8-26) Creatinine 1.2 mg/dL (0.7-1.3) Estimated GFR (Cockcroft-Gault) 58.1 BUN/Creatinine Ratio 18 (6-20) Glucose Level 95 mg/dL (70-99) Calcium Level 9.7 mg/dL (8.5-10.1) Magnesium Level 1.9 mg/dL (1.8-2.4) Total Bilirubin 0.5 mg/dL (0.2-1.0) Aspartate Amino Transf (AST/SGOT) 21 U/L (15-37) Alanine Aminotransferase (ALT/SGPT) 24 U/L (16-63) Alkaline Phosphatase 164 U/L (46-116) Creatine Kinase 34 U/L (39-308) Creatine Kinase MB (Mass) 0.6 ng/mL (0.0-3.6) Creatine Kinase MB Relative Index % (0-4) Troponin I Quantitative 0.200 ng/mL (0.000-0.055) 0.245 ng/mL (0.000-0.055) 0.137 ng/mL (0.000-0.055) UT-Ozs-D-Type Natriuretic Peptide 3447 pg/mL (0-449) Total Protein 8.0 g/dL (6.4-8.2) Albumin 2.8 g/dL (3.4-5.0) Albumin/Globulin Ratio 0.5 (1.0-1.7) Lipase 1778 U/L (73-393) Thyroid Stimulating Hormone (TSH) 0.829 uIU/mL (0.358-3.74) Urine Opiates Screen Pos (NEG) Urine Methadone Screen Neg (NEG) Urine Barbiturates Neg (NEG) Urine Phencyclidine Screen Neg (NEG) Urine Amphetamine/Methamphetamine Neg (NEG) Urine Benzodiazepines Screen Neg (NEG) Urine Cocaine Screen Neg (NEG) Urine Cannabinoids Screen Neg (NEG) Urine Ethyl Alcohol Neg (NEG) Test 10/24/18 05:40 White Blood Count 7.6 x10^3/uL (4.0-11.0) Red Blood Count 3.96 x10^6/uL (4.30-5.70) Hemoglobin 12.3 g/dL (13.0-17.5) Hematocrit 36.5 % (39.0-53.0) Mean Corpuscular Volume 92 fL (79-100) Mean Corpuscular Hemoglobin 31 pg (25-35) Mean Corpuscular Hemoglobin Concent 34 g/dL (31-37) Red Cell Distribution Width 14.7 % (11.5-14.5) Platelet Count 351 x10^3/uL (140-400) Neutrophils (%) (Auto) 58 % (31-73) Lymphocytes (%) (Auto) 26 % (24-48) Monocytes (%) (Auto) 11 % (0-9) Eosinophils (%) (Auto) 4 % (0-3) Basophils (%) (Auto) 1 % (0-3) Neutrophils # (Auto) 4.4 x10^3uL (1.8-7.7) Lymphocytes # (Auto) 2.0 x10^3/uL (1.0-4.8) Monocytes # (Auto) 0.8 x10^3/uL (0.0-1.1) Eosinophils # (Auto) 0.3 x10^3/uL (0.0-0.7) Basophils # (Auto) 0.1 x10^3/uL (0.0-0.2) Sodium Level 139 mmol/L (136-145) Potassium Level 4.1 mmol/L (3.5-5.1) Chloride Level 102 mmol/L (98-107) Carbon Dioxide Level 21 mmol/L (21-32) Anion Gap 16 (6-14) Blood Urea Nitrogen 20 mg/dL (8-26) Creatinine 1.1 mg/dL (0.7-1.3) Estimated GFR (Cockcroft-Gault) 64.2 BUN/Creatinine Ratio 18 (6-20) Glucose Level 77 mg/dL (70-99) Calcium Level 9.6 mg/dL (8.5-10.1) Total Bilirubin 0.5 mg/dL (0.2-1.0) Aspartate Amino Transf (AST/SGOT) 21 U/L (15-37) Alanine Aminotransferase (ALT/SGPT) 22 U/L (16-63) Alkaline Phosphatase 151 U/L (46-116) Total Protein 7.7 g/dL (6.4-8.2) Albumin 2.7 g/dL (3.4-5.0) Albumin/Globulin Ratio 0.5 (1.0-1.7) Triglycerides Level 141 mg/dL (0-150) Cholesterol Level 194 mg/dL (0-200) LDL Cholesterol, Calculated 136 mg/dL (0-100) VLDL Cholesterol, Calculated 28 mg/dL (0-40) Non-HDL Cholesterol Calculated 164 mg/dL (0-129) HDL Cholesterol 30 mg/dL (40-60) Cholesterol/HDL Ratio 6.5 Laboratory Tests Test 10/23/18 15:25 10/23/18 16:24 10/23/18 18:40 10/23/18 21:40 White Blood Count 8.5 x10^3/uL (4.0-11.0) Red Blood Count 3.87 x10^6/uL (4.30-5.70) Hemoglobin 11.9 g/dL (13.0-17.5) Hematocrit 35.3 % (39.0-53.0) Mean Corpuscular Volume 91 fL (79-100) Mean Corpuscular Hemoglobin 31 pg (25-35) Mean Corpuscular Hemoglobin Concent 34 g/dL (31-37) Red Cell Distribution Width 14.7 % (11.5-14.5) Platelet Count 365 x10^3/uL (140-400) Neutrophils (%) (Auto) 70 % (31-73) Lymphocytes (%) (Auto) 16 % (24-48) Monocytes (%) (Auto) 11 % (0-9) Eosinophils (%) (Auto) 2 % (0-3) Basophils (%) (Auto) 1 % (0-3) Neutrophils # (Auto) 6.0 x10^3uL (1.8-7.7) Lymphocytes # (Auto) 1.3 x10^3/uL (1.0-4.8) Monocytes # (Auto) 1.0 x10^3/uL (0.0-1.1) Eosinophils # (Auto) 0.2 x10^3/uL (0.0-0.7) Basophils # (Auto) 0.1 x10^3/uL (0.0-0.2) Sodium Level 137 mmol/L (136-145) Potassium Level 4.4 mmol/L (3.5-5.1) Chloride Level 99 mmol/L (98-107) Carbon Dioxide Level 25 mmol/L (21-32) Anion Gap 13 (6-14) Blood Urea Nitrogen 21 mg/dL (8-26) Creatinine 1.2 mg/dL (0.7-1.3) Estimated GFR (Cockcroft-Gault) 58.1 BUN/Creatinine Ratio 18 (6-20) Glucose Level 95 mg/dL (70-99) Calcium Level 9.7 mg/dL (8.5-10.1) Magnesium Level 1.9 mg/dL (1.8-2.4) Total Bilirubin 0.5 mg/dL (0.2-1.0) Aspartate Amino Transf (AST/SGOT) 21 U/L (15-37) Alanine Aminotransferase (ALT/SGPT) 24 U/L (16-63) Alkaline Phosphatase 164 U/L (46-116) Creatine Kinase 34 U/L (39-308) Creatine Kinase MB (Mass) 0.6 ng/mL (0.0-3.6) Creatine Kinase MB Relative Index % (0-4) Troponin I Quantitative 0.200 ng/mL (0.000-0.055) 0.245 ng/mL (0.000-0.055) 0.137 ng/mL (0.000-0.055) OS-Buq-G-Type Natriuretic Peptide 3447 pg/mL (0-449) Total Protein 8.0 g/dL (6.4-8.2) Albumin 2.8 g/dL (3.4-5.0) Albumin/Globulin Ratio 0.5 (1.0-1.7) Lipase 1778 U/L (73-393) Thyroid Stimulating Hormone (TSH) 0.829 uIU/mL (0.358-3.74) Urine Opiates Screen Pos (NEG) Urine Methadone Screen Neg (NEG) Urine Barbiturates Neg (NEG) Urine Phencyclidine Screen Neg (NEG) Urine Amphetamine/Methamphetamine Neg (NEG) Urine Benzodiazepines Screen Neg (NEG) Urine Cocaine Screen Neg (NEG) Urine Cannabinoids Screen Neg (NEG) Urine Ethyl Alcohol Neg (NEG) Test 10/24/18 05:40 White Blood Count 7.6 x10^3/uL (4.0-11.0) Red Blood Count 3.96 x10^6/uL (4.30-5.70) Hemoglobin 12.3 g/dL (13.0-17.5) Hematocrit 36.5 % (39.0-53.0) Mean Corpuscular Volume 92 fL (79-100) Mean Corpuscular Hemoglobin 31 pg (25-35) Mean Corpuscular Hemoglobin Concent 34 g/dL (31-37) Red Cell Distribution Width 14.7 % (11.5-14.5) Platelet Count 351 x10^3/uL (140-400) Neutrophils (%) (Auto) 58 % (31-73) Lymphocytes (%) (Auto) 26 % (24-48) Monocytes (%) (Auto) 11 % (0-9) Eosinophils (%) (Auto) 4 % (0-3) Basophils (%) (Auto) 1 % (0-3) Neutrophils # (Auto) 4.4 x10^3uL (1.8-7.7) Lymphocytes # (Auto) 2.0 x10^3/uL (1.0-4.8) Monocytes # (Auto) 0.8 x10^3/uL (0.0-1.1) Eosinophils # (Auto) 0.3 x10^3/uL (0.0-0.7) Basophils # (Auto) 0.1 x10^3/uL (0.0-0.2) Sodium Level 139 mmol/L (136-145) Potassium Level 4.1 mmol/L (3.5-5.1) Chloride Level 102 mmol/L (98-107) Carbon Dioxide Level 21 mmol/L (21-32) Anion Gap 16 (6-14) Blood Urea Nitrogen 20 mg/dL (8-26) Creatinine 1.1 mg/dL (0.7-1.3) Estimated GFR (Cockcroft-Gault) 64.2 BUN/Creatinine Ratio 18 (6-20) Glucose Level 77 mg/dL (70-99) Calcium Level 9.6 mg/dL (8.5-10.1) Total Bilirubin 0.5 mg/dL (0.2-1.0) Aspartate Amino Transf (AST/SGOT) 21 U/L (15-37) Alanine Aminotransferase (ALT/SGPT) 22 U/L (16-63) Alkaline Phosphatase 151 U/L (46-116) Total Protein 7.7 g/dL (6.4-8.2) Albumin 2.7 g/dL (3.4-5.0) Albumin/Globulin Ratio 0.5 (1.0-1.7) Triglycerides Level 141 mg/dL (0-150) Cholesterol Level 194 mg/dL (0-200) LDL Cholesterol, Calculated 136 mg/dL (0-100) VLDL Cholesterol, Calculated 28 mg/dL (0-40) Non-HDL Cholesterol Calculated 164 mg/dL (0-129) HDL Cholesterol 30 mg/dL (40-60) Cholesterol/HDL Ratio 6.5 VTE Prophylaxis Ordered VTE Prophylaxis Devices: Yes VTE Pharmacological Prophylaxi: Yes Assessment/Plan Assessment/Plan Mild pancreatitis SIRS secondary to above with no organ dysfunction History GERD per documentation Was unkempt on admission -Social issues ? Plan: admit 2 MN,. nothing by mouth repeat lipase tomorrow, GI consulted, supportive meds-not complaining of any pain I think we might be able to start liquid diet latest tomorrow if not later today if GI recommends SW for home situation issues? RAFAEL WU MD October 24, 2018 10:23
[2018-10-24 11:00] VITALS: BP 162/84
[2018-10-24] MEDS: IV NORMAL SALINE 1000ML BAG 1,000 ML IV SCH ×2 (12:09→21:00)
[2018-10-24] MEDS: POLYETHYLENE GLYCOL 3350 17 GM PACKET. PO SCH ×2 (12:30→21:00)
[2018-10-24] MEDS: PANTOPRAZOLE 40 MG TABLET.DR. PO SCH (13:50)
[2018-10-24] MEDS: ONDANSETRON PF 4 MG/2 ML VIAL. IV PRN (13:59)
--- NOTE | 2018-10-24 13:59 | CARD ---
MR#: [id number] Date of Study: 10/24/2018 Ordering Physician: JEREMY BLANK, Referring Physician: SHELLY MAGALLANES, Tech: Luisa Chiu APPROVED REPORT EXAM: Two-dimensional and M-mode echocardiogram with Doppler and color Doppler. Other Information Quality : AverageHR: 82bpm INDICATION Elevated Troponin RISK FACTORS Hypertension Smoking 2D DIMENSIONS RVDd2.6 (2.9-3.5cm)Left Atrium(2D)3.2 (1.6-4.0cm) IVSd1.4 (0.7-1.1cm)Aortic Root(2D)3.4 (2.0-3.7cm) LVDd4.7 (3.9-5.9cm)LVOT Diameter2.1 (1.8-2.4cm) PWd1.0 (0.7-1.1cm)LVDs2.8 (2.5-4.0cm) FS (%) 40.0 %SV71.0 ml LVEF(%)70.6 (>50%) Aortic Valve AoV Peak Mohit.139.3cm/sAoV VTI21.3cm AO Peak GR.7.8mmHgLVOT Peak Mohit.88.0cm/s LVOT VTI 13.06cmAO Mean GR.4mmHg JESSICA (VMAX)1.33ko5QQX (VTI)2.06cm2 Mitral Valve MV E Vvmfesja30.1cm/sMV DECEL [id number] MV A Gzakcupk49.6cm/sMV [id number] E/A Ratio0.6MVA (PHT)1.91cm2 TDI E/Lateral E'7.3E/Medial E'7.4 Pulmonary Valve PV Peak Rvlcepsk287.6cm/sPV Peak Grad.7mmHg Tricuspid Valve TR P. Gwbhwpkn714wl/sRAP [id number] TR Peak Gr.34edLvCECD62zfRv Pulmonary Vein S1 Vkkejysc27.5cm/sD2 Wiuybtnt53.4cm/s PVa [id number] LEFT VENTRICLE The left ventricle is normal size. There is mild concentric left ventricular hypertrophy. The left ve ntricular systolic function is mildly decreased. The Ejection Fraction is 45-50%. There is slight tyson bal hypokinesis of the left ventricle. Transmitral Doppler flow pattern is Grade I-abnormal relaxatio n pattern. RIGHT VENTRICLE The right ventricle is normal size. There is normal right ventricular wall thickness. The right ventr icular systolic function is normal. ATRIA The left atrium size is normal. The right atrium size is normal. The interatrial septum is intact wit h no evidence for an atrial septal defect or patent foramen ovale as noted on 2-D or Doppler imaging. AORTIC VALVE The aortic valve is normal in structure and function. Doppler and Color Flow revealed no significant aortic regurgitation. There is no significant aortic valvular stenosis. MITRAL VALVE The mitral valve is normal in structure and function. There is no evidence of mitral valve prolapse. There is no mitral valve stenosis. Doppler and Color-flow revealed mild mitral regurgitation. TRICUSPID VALVE The tricuspid valve is normal in structure and function. Doppler and Color Flow revealed trace to mil d tricuspid regurgitation with an estimated PAP of 42 mmHg. There is no tricuspid valve prolapse or v egetation. PULMONIC VALVE The pulmonic valve is not well visualized. Doppler and Color Flow revealed mild pulmonic valvular reg urgitation. GREAT VESSELS The aortic root is normal in size. The IVC is normal in size and collapses >50% with inspiration. PERICARDIAL EFFUSION There is no evidence of significant pericardial effusion. Critical Notification Critical Value: No <Conclusion> The left ventricle is normal size. The left ventricular systolic function is mildly decreased. The Ejection Fraction is 45-50%. There is slight global hypokinesis of the left ventricle. There is mild concentric left ventricular hypertrophy. There is no significant aortic valvular stenosis. Doppler and Color Flow revealed no significant aortic regurgitation. Doppler and Color-flow revealed mild mitral regurgitation. Doppler and Color Flow revealed trace to mild tricuspid regurgitation with an estimated PAP of 42 mmH g. Signed by : Richy Haro MD Electronically Approved : 10/24/2018 13:58:51
[2018-10-24 15:00] VITALS: BP 179/75
[2018-10-24] MEDS: ASPIRIN ENTERIC COATED 81 MG TABLET.DR. PO SCH (17:20)
[2018-10-24 19:00] VITALS: BP 159/63
[2018-10-24 23:00] VITALS: BP 179/88
[2018-10-25] MEDS: IV NORMAL SALINE 1000ML BAG 1,000 ML IV SCH (02:31)
[2018-10-25 03:00] VITALS: BP 134/62
[2018-10-25 07:15] VITALS: BP 193/99
[2018-10-25] MEDS: LIDOCAINE (700MG/PATCH) PATCH. TD SCH (08:03)
[2018-10-25] MEDS: ASPIRIN ENTERIC COATED 81 MG TABLET.DR. PO SCH (08:03)
[2018-10-25] MEDS: PANTOPRAZOLE 40 MG TABLET.DR. PO SCH (08:03)
[2018-10-25] MEDS: POLYETHYLENE GLYCOL 3350 17 GM PACKET. PO SCH ×2 (08:04→21:31)
[2018-10-25] MEDS: ONDANSETRON PF 4 MG/2 ML VIAL. IV PRN (08:07)
[2018-10-25 11:07] VITALS: BP 183/82
--- NOTE | 2018-10-25 11:08 | PDOC ---
Subjective: Subjective: Tolerating clears, feels better, less pain, no n/v. Hasn't stooled. Objective: Objective: D/w Dr. Duarte. Vital Signs: Vital Signs Date Time Temp Pulse Resp B/P (MAP) Pulse Ox O2 Delivery O2 Flow Rate FiO2 10/25/18 08:16 Room Air 10/25/18 07:15 97.4 66 18 193/99 (130) 94 97.4 Labs: Laboratory Tests Test 10/25/18 03:10 Lipase 483 U/L Imaging: Echocardiogram 10/24 <Conclusion> The left ventricle is normal size. The left ventricular systolic function is mildly decreased. The Ejection Fraction is 45-50%. There is slight global hypokinesis of the left ventricle. There is mild concentric left ventricular hypertrophy. There is no significant aortic valvular stenosis. Doppler and Color Flow revealed no significant aortic regurgitation. Doppler and Color-flow revealed mild mitral regurgitation. Doppler and Color Flow revealed trace to mild tricuspid regurgitation with an estimated PAP of 42 mmHg. PE: GEN: NAD LUNGS: room air HEART: RRR ABD: soft - he asks me to "quit it" NEURO/PSYCH: more lucid today A/P: Abd pain, n/v - improving Abnormal pancreas imaging Dementia, debility -- Try full liquids, ADAT. Continue PPI, Miralax. [id number] pending. Outpt MRCP. SUZANNE ARCHER October 25, 2018 11:08
--- NOTE | 2018-10-25 11:17 | PDOC ---
CARDIO Progress Notes Date and Time Date of Service 10/25/18 Time of Evaluation 1110 Subjective Subjective: No Chest Pain, No Dizziness (upon standing this morning ), Other (not wanting to go home tomorrow) Vitals Vitals Vital Signs Date Time Temp Pulse Resp B/P (MAP) Pulse Ox O2 Delivery O2 Flow Rate FiO2 10/25/18 11:07 97.5 74 20 183/82 (115) 95 Room Air 97.5 Weight Weight [ ] Input and Output Intake and Output Intake and Output 10/25/18 07:00 Intake Total 1300 ml Output Total 1225 ml Balance 75 ml Intake Oral 300 ml IV Total 1000 ml Output Urine Total 1225 ml Laboratory Labs Laboratory Tests Test 10/25/18 03:10 Lipase 483 U/L (73-393) Physical Exam HEENT: Neck Supple W Full Motion Chest: Symmetric LUNGS: Clear to Auscultation Heart: S1S2, RRR, no murmurs Abdomen: Other (soft ) Extremities: No Edema Neurology: alert, follow commands, other (anxious ) Assessment Assessment 1. Abdominal pain, nausea/vomiting 2. Acute on chronic pancreatitis; lipase trending downward 3. Accelerated hypertension; labile 4. Elevated troponin; peak 0.245. Most probably type II, demand ischemia 5. Chronic systolic HF; clinically compensated 6. Cardiomyopathy; LVEF 40% (2016). Initially noted in 2014 and underwent stress test at that time, which was unremarkable for ischemia. Echo yesterday showed LVEF 45-50% with global hypokinesis 7. Hyperlipidemia; LDL 136 Recommendations Consider outpatient ischemic evaluation Add lisinopril for BP control Supportive care Patient to f/u in our office with Dr. Carrasco as scheduled DREW CHADWICK APRN October 25, 2018 11:17
--- NOTE | 2018-10-25 11:25 | PDOC ---
PROGRESS NOTES Chief Complaint Chief Complaint Mild pancreatitis Diminished LV function-EF 45-50 SIRS secondary to above with no organ dysfunction History GERD per documentation Was unkempt on admission -Social issues ? History of Present Illness History of Present Illness echo shows diminished LV function: <Conclusion> The left ventricle is normal size. The left ventricular systolic function is mildly decreased. The Ejection Fraction is 45-50%. There is slight global hypokinesis of the left ventricle. There is mild concentric left ventricular hypertrophy. There is no significant aortic valvular stenosis. Doppler and Color Flow revealed no significant aortic regurgitation. Doppler and Color-flow revealed mild mitral regurgitation. Doppler and Color Flow revealed trace to mild tricuspid regurgitation with an estimated PAP of 42 mmHg. PT recommends home Patient has no complaints but he requests to be discharged tomorrow to make arrangements Lipase down to 483 from over thousand on admission Okay to advance diet as tolerated per GI-discussed with GI mid-level OP MRCP CA 19-9 ordered, was mildly elevated past admit - dilated duct on imaging PLAN: ADAT Wait for cards rounds/recs - he does have diminished EF Home tmr CA 19-9 ff up OP MRCP If CA-19-9 is elevated I might do MRCP here as patient clearly will have poor [id number] not bathed in 8 months prior to admission Vitals Vitals Vital Signs Date Time Temp Pulse Resp B/P (MAP) Pulse Ox O2 Delivery O2 Flow Rate FiO2 10/25/18 11:07 97.5 74 20 183/82 (115) 95 Room Air 97.5 Physical Exam General: Alert, Oriented X3, Cooperative, No acute distress Heart: Regular rate, Normal S1, Normal S2, Other (2/6 systolic murmur ) Lungs: Clear Abdomen: Normal bowel sounds, Soft, No tenderness, No hepatosplenomegaly, No masses Extremities: No edema, Normal pulses Skin: No significant lesion Labs LABS Laboratory Tests Test 10/25/18 03:10 Lipase 483 U/L (73-393) Review of Systems Review of Systems A 14 point ROS was completed with the following noted as positive: Other systems reviewed and negative. \CONSTITUTIONAL: No fever or chills EYES: No recent changes SKIN: No rash or itching CARDIOVASCULAR: No chest pain, syncope, palpitations, or edema RESPIRATORY: No SOB or cough GASTROINTESTINAL: No nausea, vomiting or abdominal pain NEUROLOGICAL: No headaches or weakness ENDOCRINE: No cold or heat intolerance GENITOURINARY: No urgency or frequency of urination MUSCULOSKELETAL: No back pain or joint pain LYMPHATICS: No enlarged lymph nodes PSYCHIATRIC: No anxiety or depression Assessment and Plan Assessmemt and Plan Problems Medical Problems: (1) Acute cervical sprain Status: Acute (2) Acute prostatitis Status: Acute (3) Nausea and vomiting Status: Acute (4) Need for family welfare social work professor intervention Status: Acute (5) NSTEMI (non-ST elevated myocardial infarction) Status: Acute (6) Scalp contusion Status: Acute Comment Review of Relevant I have reviewed the following items enid (where applicable) has been applied. Labs Laboratory Tests Test 10/23/18 15:25 10/23/18 16:24 10/23/18 18:40 10/23/18 21:40 White Blood Count 8.5 x10^3/uL (4.0-11.0) Red Blood Count 3.87 x10^6/uL (4.30-5.70) Hemoglobin 11.9 g/dL (13.0-17.5) Hematocrit 35.3 % (39.0-53.0) Mean Corpuscular Volume 91 fL (79-100) Mean Corpuscular Hemoglobin 31 pg (25-35) Mean Corpuscular Hemoglobin Concent 34 g/dL (31-37) Red Cell Distribution Width 14.7 % (11.5-14.5) Platelet Count 365 x10^3/uL (140-400) Neutrophils (%) (Auto) 70 % (31-73) Lymphocytes (%) (Auto) 16 % (24-48) Monocytes (%) (Auto) 11 % (0-9) Eosinophils (%) (Auto) 2 % (0-3) Basophils (%) (Auto) 1 % (0-3) Neutrophils # (Auto) 6.0 x10^3uL (1.8-7.7) Lymphocytes # (Auto) 1.3 x10^3/uL (1.0-4.8) Monocytes # (Auto) 1.0 x10^3/uL (0.0-1.1) Eosinophils # (Auto) 0.2 x10^3/uL (0.0-0.7) Basophils # (Auto) 0.1 x10^3/uL (0.0-0.2) Sodium Level 137 mmol/L (136-145) Potassium Level 4.4 mmol/L (3.5-5.1) Chloride Level 99 mmol/L (98-107) Carbon Dioxide Level 25 mmol/L (21-32) Anion Gap 13 (6-14) Blood Urea Nitrogen 21 mg/dL (8-26) Creatinine 1.2 mg/dL (0.7-1.3) Estimated GFR (Cockcroft-Gault) 58.1 BUN/Creatinine Ratio 18 (6-20) Glucose Level 95 mg/dL (70-99) Calcium Level 9.7 mg/dL (8.5-10.1) Magnesium Level 1.9 mg/dL (1.8-2.4) Total Bilirubin 0.5 mg/dL (0.2-1.0) Aspartate Amino Transf (AST/SGOT) 21 U/L (15-37) Alanine Aminotransferase (ALT/SGPT) 24 U/L (16-63) Alkaline Phosphatase 164 U/L (46-116) Creatine Kinase 34 U/L (39-308) Creatine Kinase MB (Mass) 0.6 ng/mL (0.0-3.6) Creatine Kinase MB Relative Index % (0-4) Troponin I Quantitative 0.200 ng/mL (0.000-0.055) 0.245 ng/mL (0.000-0.055) 0.137 ng/mL (0.000-0.055) WO-[id number]-[id number]-Type Natriuretic Peptide 3447 pg/mL (0-449) Total Protein 8.0 g/dL (6.4-8.2) Albumin 2.8 g/dL (3.4-5.0) Albumin/Globulin Ratio 0.5 (1.0-1.7) Lipase 1778 U/L (73-393) Thyroid Stimulating Hormone (TSH) 0.829 uIU/mL (0.358-3.74) Urine Opiates Screen Pos (NEG) Urine Methadone Screen Neg (NEG) Urine Barbiturates Neg (NEG) Urine Phencyclidine Screen Neg (NEG) Urine Amphetamine/Methamphetamine Neg (NEG) Urine Benzodiazepines Screen Neg (NEG) Urine Cocaine Screen Neg (NEG) Urine Cannabinoids Screen Neg (NEG) Urine Ethyl Alcohol Neg (NEG) Test 10/24/18 05:40 10/25/18 03:10 White Blood Count 7.6 x10^3/uL (4.0-11.0) Red Blood Count 3.96 x10^6/uL (4.30-5.70) Hemoglobin 12.3 g/dL (13.0-17.5) Hematocrit 36.5 % (39.0-53.0) Mean Corpuscular Volume 92 fL (79-100) Mean Corpuscular Hemoglobin 31 pg (25-35) Mean Corpuscular Hemoglobin Concent 34 g/dL (31-37) Red Cell Distribution Width 14.7 % (11.5-14.5) Platelet Count 351 x10^3/uL (140-400) Neutrophils (%) (Auto) 58 % (31-73) Lymphocytes (%) (Auto) 26 % (24-48) Monocytes (%) (Auto) 11 % (0-9) Eosinophils (%) (Auto) 4 % (0-3) Basophils (%) (Auto) 1 % (0-3) Neutrophils # (Auto) 4.4 x10^3uL (1.8-7.7) Lymphocytes # (Auto) 2.0 x10^3/uL (1.0-4.8) Monocytes # (Auto) 0.8 x10^3/uL (0.0-1.1) Eosinophils # (Auto) 0.3 x10^3/uL (0.0-0.7) Basophils # (Auto) 0.1 x10^3/uL (0.0-0.2) Sodium Level 139 mmol/L (136-145) Potassium Level 4.1 mmol/L (3.5-5.1) Chloride Level 102 mmol/L (98-107) Carbon Dioxide Level 21 mmol/L (21-32) Anion Gap 16 (6-14) Blood Urea Nitrogen 20 mg/dL (8-26) Creatinine 1.1 mg/dL (0.7-1.3) Estimated GFR (Cockcroft-Gault) 64.2 BUN/Creatinine Ratio 18 (6-20) Glucose Level 77 mg/dL (70-99) Calcium Level 9.6 mg/dL (8.5-10.1) Total Bilirubin 0.5 mg/dL (0.2-1.0) Aspartate Amino Transf (AST/SGOT) 21 U/L (15-37) Alanine Aminotransferase (ALT/SGPT) 22 U/L (16-63) Alkaline Phosphatase 151 U/L (46-116) Total Protein 7.7 g/dL (6.4-8.2) Albumin 2.7 g/dL (3.4-5.0) Albumin/Globulin Ratio 0.5 (1.0-1.7) Triglycerides Level 141 mg/dL (0-150) Cholesterol Level 194 mg/dL (0-200) LDL Cholesterol, Calculated 136 mg/dL (0-100) VLDL Cholesterol, Calculated 28 mg/dL (0-40) Non-HDL Cholesterol Calculated 164 mg/dL (0-129) HDL Cholesterol 30 mg/dL (40-60) Cholesterol/HDL Ratio 6.5 Lipase 483 U/L (73-393) Laboratory Tests Test 10/25/18 03:10 Lipase 483 U/L (73-393) Medications Current Medications Morphine Sulfate (Morphine Sulfate) 5 mg 1X ONCE IV Last administered on 10/23/18at 15:36; Start 10/23/18 at 15:30; Stop 10/23/18 at 15:31; Status DC Ondansetron HCl (Zofran) 4 mg 1X ONCE IV Last administered on 10/23/18at 15:35; Start 10/23/18 at 15:30; Stop 10/23/18 at 15:31; Status DC Sodium Chloride 1,000 ml @ 1,000 mls/hr 1X ONCE IV Last administered on 10/23/18at 16:54; Start 10/23/18 at 16:30; Stop 10/23/18 at 17:29; Status DC Morphine Sulfate (Morphine Sulfate) 5 mg 1X ONCE IV Last administered on 10/23/18at 16:56; Start 10/23/18 at 17:00; Stop 10/23/18 at 17:01; Status DC Iohexol (Omnipaque 300 Mg/ml) 60 ml 1X ONCE IV Last administered on 10/23/18at 17:05; Start 10/23/18 at 16:45; Stop 10/23/18 at 16:46; Status DC Info (CONTRAST GIVEN -- Rx MONITORING) 1 each PRN DAILY PRN MC SEE COMMENTS; Start 10/23/18 at 16:45; Stop 10/25/18 at 16:44 Ondansetron HCl (Zofran) 4 mg PRN Q8HRS PRN IV NAUSEA/VOMITING; Start 10/23/18 at 17:45; Stop 10/24/18 at 08:19; Status DC Morphine Sulfate (Morphine Sulfate) 4 mg PRN Q2HR PRN IV PAIN Last administered on 10/24/18 00:15; Start 10/23/18 at 17:45; Stop 10/24/18 at 17:44; Status DC Nitroglycerin (Nitrostat) 0.4 mg PRN Q5MIN PRN SL CHEST PAIN; Start 10/23/18 at 17:45; Stop 10/24/18 at 17:44; Status DC Sodium Chloride 1,000 ml @ 125 mls/hr 1X ONCE IV Last administered on 10/23/18at 18:45; Start 10/23/18 at 17:45; Stop 10/24/18 at 01:44; Status DC Aspirin (Dionne Aspirin) 325 mg 1X ONCE PO Last administered on 10/23/18 18:45; Start 10/23/18 at 18:15; Stop 10/23/18 at 18:16; Status DC Ondansetron HCl (Zofran) 4 mg PRN Q6HRS PRN IV NAUSEA/VOMITING Last administered on 10/25/18 08:07; Start 10/24/18 at 08:30 Acetaminophen (Tylenol) 500 mg PRN Q6HRS PRN PO MILD PAIN / TEMP Last administered on 10/24/18 17:20; Start 10/24/18 at 08:30 Sodium Chloride 1,000 ml @ 80 mls/hr [id number] IV Last administered on 10/25/18 02:31; Start 10/24/18 at 08:30 Pantoprazole Sodium (Protonix) 40 mg DAILYAC PO Last administered on 10/25/18 08:03; Start 10/24/18 at 12:30 Polyethylene Glycol (miraLAX PACKET) 17 gm BID PO Last administered on 10/25/18 08:04; Start 10/24/18 at 12:30 Aspirin (Ecotrin) 81 mg DAILYWBKFT PO Last administered on 10/25/18 08:03; Start 10/24/18 at 17:30 Morphine Sulfate (Morphine Sulfate) 4 mg PRN Q2HR PRN IV PAIN Last administered on 5/22/19at 20:02; Start 10/24/18 at 20:00 Lidocaine (Lidoderm) 1 patch DAILY TD Last administered on 10/25/18at 08:03; Start 10/25/18 at 09:00 [facility] Start 10/25/18 at 21:00 Active Scripts Active Lidoderm (Lidocaine) 1 Patch Patch 1 Patch TD DAILY Advair 250-50 Diskus (Fluticasone/Salmeterol) 1 Puff Puff 1 Puff INH BID Norvasc (Amlodipine Besylate) 10 Mg Tablet 10 Mg PO DAILY Reported Pantoprazole Sodium 40 Mg Tablet.dr 40 Mg PO DAILY Vitals/I & O Vital Sign - Last 24 Hours 10/24/18 10/24/18 10/24/18 10/24/18 15:00 19:00 19:45 20:02 Temp 97.4 97.6 97.4 97.6 Pulse 61 60 Resp 18 18 14 B/P (MAP) 179/75 (109) 159/63 (95) Pulse Ox 94 93 O2 Delivery Room Air Room Air Room Air Room Air 10/24/18 10/24/18 10/25/18 10/25/18 20:30 23:00 03:00 07:15 Temp 97.6 97.5 97.4 97.6 97.5 97.4 Pulse 63 77 66 Resp 16 18 18 18 B/P (MAP) 179/88 (118) 134/62 (86) 193/99 (130) Pulse Ox 91 96 94 O2 Delivery Room Air Room Air Room Air Room Air 10/25/18 10/25/18 08:16 11:07 Temp 97.5 97.5 Pulse 74 Resp 20 B/P (MAP) 183/82 (115) Pulse Ox 95 O2 Delivery Room Air Room Air Intake and Output 10/24/18 10/24/18 10/25/18 15:00 23:00 07:00 Intake Total 100 ml 200 ml 1000 ml Output Total 250 ml 300 ml 675 ml Balance -150 ml -100 ml 325 ml RAFAEL WU MD October 25, 2018 11:25
--- NOTE | 2018-10-25 12:43 | NUR ---
SW consulted for living in a dirty house. Chart reviewed. SW spoke with pt regarding his living arrangement and pt states he lives at home with his daughter who is blind. Pt states he has another daughter in [place] but she does not talk to him or visit him. Pt states he has not seen his grandchildren in a long time. Pt reports he drives to grocery store and his daughter assists in grocery shopping. Pt reports they usually buy microwavable food as daughter is not able to cook. Pt was not to happy to discuss how/why he did not bathe for 8 months but states they have running water at home. He stated they have a bath tub and SW informed Pt, Home health OT can assist pt in teaching how to safely bathe at home. Pt then reported 'his head is hurting' and was 'overwhelmed as everyone is asking him the same questions everyday'. Pt at this time is not agreeable with home health but states he only wants house keeping to come in the home once a week. SW discussed unfortunately that is not something SW can arrange as that is not covered by insurance. GERALDINE provided pt with [facility] of aging information to assist with Meals and Wheels and Case Management Services. Pt accepted resources. GERALDINE will follow up with Pt again in the morning to discuss about home health services.
[2018-10-25 14:56] VITALS: BP 137/87
[2018-10-25 19:00] VITALS: BP 162/103
[2018-10-25] MEDS: MORPHINE SULFATE 4 MG/ML VIAL. IV PRN (19:36)
[2018-10-25] MEDS: PATCH REMOVAL. MC SCH (21:00)
[2018-10-25 23:00] VITALS: BP 164/96
[2018-10-26] VITALS (7 sets, daily range): BP systolic 120–180; BP diastolic 56–105
[2018-10-26] MEDS: PANTOPRAZOLE 40 MG TABLET.DR. PO SCH (06:27)
[2018-10-26] MEDS: POLYETHYLENE GLYCOL 3350 17 GM PACKET. PO SCH ×2 (09:00→20:42)
--- NOTE | 2018-10-26 09:09 | PDOC ---
PROGRESS NOTES Chief Complaint Chief Complaint Mild pancreatitis Diminished LV function-EF 45-50 SIRS secondary to above with no organ dysfunction History GERD per documentation Was unkempt on admission -Social issues ? History of Present Illness History of Present Illness echo shows diminished LV function: <Conclusion> The left ventricle is normal size. The left ventricular systolic function is mildly decreased. The Ejection Fraction is 45-50%. There is slight global hypokinesis of the left ventricle. There is mild concentric left ventricular hypertrophy. There is no significant aortic valvular stenosis. Doppler and Color Flow revealed no significant aortic regurgitation. Doppler and Color-flow revealed mild mitral regurgitation. Doppler and Color Flow revealed trace to mild tricuspid regurgitation with an estimated PAP of 42 mmHg. 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 Tolerating PO diet fine Okay to advance diet as tolerated per GI-discussed with GI mid-level CA 19-9 ordered, was mildly elevated past admit - dilated duct on imaging PLAN: ADAT MRCP here Wait for cards rounds/recs - he does have diminished EF HH on dc CA 19-9 ff up Dw GI Vitals Vitals Vital Signs Date Time Temp Pulse Resp B/P (MAP) Pulse Ox O2 Delivery O2 Flow Rate FiO2 10/26/18 07:00 98.2 65 18 164/75 (104) 94 Room Air 98.2 Physical Exam General: Alert, Oriented X3, Cooperative, No acute distress Heart: Regular rate, Normal S1, Normal S2, Other (2/6 systolic murmur ) Lungs: Clear Abdomen: Normal bowel sounds, Soft, No tenderness, No hepatosplenomegaly, No masses Extremities: No edema, Normal pulses Skin: No significant lesion Labs LABS Laboratory Tests Test 10/26/18 03:50 Lipase 461 U/L (73-393) Review of Systems Review of Systems A 14 point ROS was completed with the following noted as positive: Other systems reviewed and negative. \CONSTITUTIONAL: No fever or chills EYES: No recent changes SKIN: No rash or itching CARDIOVASCULAR: No chest pain, syncope, palpitations, or edema RESPIRATORY: No SOB or cough GASTROINTESTINAL: No nausea, vomiting or abdominal pain NEUROLOGICAL: No headaches or weakness ENDOCRINE: No cold or heat intolerance GENITOURINARY: No urgency or frequency of urination MUSCULOSKELETAL: No back pain or joint pain LYMPHATICS: No enlarged lymph nodes PSYCHIATRIC: No anxiety or depression Assessment and Plan Assessmemt and Plan Problems Medical Problems: (1) Acute cervical sprain Status: Acute (2) Acute prostatitis Status: Acute (3) Nausea and vomiting Status: Acute (4) Need for social insurance analyst intervention Status: Acute (5) NSTEMI (non-ST elevated myocardial infarction) Status: Acute (6) Scalp contusion Status: Acute Comment Review of Relevant I have reviewed the following items enid (where applicable) has been applied. Labs Laboratory Tests Test 10/25/18 03:10 10/26/18 03:50 Lipase 483 U/L (73-393) 461 U/L (73-393) Laboratory Tests Test 10/26/18 03:50 Lipase 461 U/L (73-393) Medications Current Medications Morphine Sulfate (Morphine Sulfate) 5 mg 1X ONCE IV Last administered on 10/23/18at 15:36; Start 10/23/18 at 15:30; Stop 10/23/18 at 15:31; Status DC Ondansetron HCl (Zofran) 4 mg 1X ONCE IV Last administered on 10/23/18at 15:35; Start 10/23/18 at 15:30; Stop 10/23/18 at 15:31; Status DC Sodium Chloride 1,000 ml @ 1,000 mls/hr 1X ONCE IV Last administered on 10/23/18at 16:54; Start 10/23/18 at 16:30; Stop 10/23/18 at 17:29; Status DC Morphine Sulfate (Morphine Sulfate) 5 mg 1X ONCE IV Last administered on 10/23/18at 16:56; Start 10/23/18 at 17:00; Stop 10/23/18 at 17:01; Status DC Iohexol (Omnipaque 300 Mg/ml) 60 ml 1X ONCE IV Last administered on 10/23/18at 17:05; Start 10/23/18 at 16:45; Stop 10/23/18 at 16:46; Status DC Info (CONTRAST GIVEN -- Rx MONITORING) 1 each PRN DAILY PRN MC SEE COMMENTS; Start 10/23/18 at 16:45; Stop 10/25/18 at 16:44; Status DC Ondansetron HCl (Zofran) 4 mg PRN Q8HRS PRN IV NAUSEA/VOMITING; Start 10/23/18 at 17:45; Stop 10/24/18 at 08:19; Status DC Morphine Sulfate (Morphine Sulfate) 4 mg PRN Q2HR PRN IV PAIN Last administered on 10/24/18 00:15; Start 10/23/18 at 17:45; Stop 10/24/18 at 17:44; Status DC Nitroglycerin (Nitrostat) 0.4 mg PRN Q5MIN PRN SL CHEST PAIN; Start 10/23/18 at 17:45; Stop 10/24/18 at 17:44; Status DC Sodium Chloride 1,000 ml @ 125 mls/hr 1X ONCE IV Last administered on 10/23/18at 18:45; Start 10/23/18 at 17:45; Stop 10/24/18 at 01:44; Status DC Aspirin (Dionne Aspirin) 325 mg 1X ONCE PO Last administered on 10/23/18at 18:45; Start 10/23/18 at 18:15; Stop 10/23/18 at 18:16; Status DC Ondansetron HCl (Zofran) 4 mg PRN Q6HRS PRN IV NAUSEA/VOMITING Last administered on 10/25/18 08:07; Start 10/24/18 at 08:30 Acetaminophen (Tylenol) 500 mg PRN Q6HRS PRN PO MILD PAIN / TEMP Last administered on 10/24/18 17:20; Start 10/24/18 at 08:30 Sodium Chloride 1,000 ml @ 80 mls/hr [id number] IV Last administered on 10/25/18 02:31; Start 10/24/18 at 08:30; Stop 10/25/18 at 11:26; Status DC Pantoprazole Sodium (Protonix) 40 mg DAILYAC PO Last administered on 10/26/18 06:27; Start 10/24/18 at 12:30 Polyethylene Glycol (miraLAX PACKET) 17 gm BID PO Last administered on 10/25/18 21:31; Start 10/24/18 at 12:30 Aspirin (Ecotrin) 81 mg DAILYWBKFT PO Last administered on 10/25/18at 08:03; Start 10/24/18 at 17:30 Morphine Sulfate (Morphine Sulfate) 4 mg PRN Q2HR PRN IV PAIN Last administered on 10/25/18at 19:36; Start 10/24/18 at 20:00 Lidocaine (Lidoderm) 1 patch DAILY TD Last administered on 10/25/18at 08:03; Start 10/25/18 at 09:00 Miscellaneous (Lidoderm Patch Removal) 1 ea QHS ; Start 10/25/18 at 21:00 Lisinopril (Prinivil) 10 mg DAILY PO ; Start 10/26/18 at 09:00 Active Scripts Active Lidoderm (Lidocaine) 1 Patch Patch 1 Patch TD DAILY Advair 250-50 Diskus (Fluticasone/Salmeterol) 1 Puff Puff 1 Puff INH BID Norvasc (Amlodipine Besylate) 10 Mg Tablet 10 Mg PO DAILY Reported Pantoprazole Sodium 40 Mg Tablet.dr 40 Mg PO DAILY Vitals/I & O Vital Sign - Last 24 Hours 10/25/18 10/25/18 10/25/18 10/25/18 11:07 14:56 19:00 19:36 Temp 97.5 97.8 97.5 97.5 97.8 97.5 Pulse 74 71 74 Resp 20 18 18 20 B/P (MAP) 183/82 (115) 137/87 (104) 162/103 (122) Pulse Ox 95 96 93 96 O2 Delivery Room Air Room Air Room Air Room Air 10/25/18 10/25/18 10/25/18 10/26/18 20:00 20:06 23:00 02:53 Temp 97.6 97.8 97.6 97.8 Pulse 91 66 Resp 18 18 17 B/P (MAP) 164/96 (118) 180/105 (130) Pulse Ox 93 93 93 O2 Delivery Room Air Room Air Room Air Room Air 10/26/18 10/26/18 03:28 07:00 Temp 98.2 98.2 Pulse 65 Resp 18 B/P (MAP) 174/76 (108) 164/75 (104) Pulse Ox 94 O2 Delivery Room Air Intake and Output 10/25/18 10/25/18 10/26/18 15:00 23:00 07:00 Intake Total 120 ml 150 ml 210 ml Output Total 200 ml 600 ml 200 ml Balance -80 ml -450 ml 10 ml TERMULO,RAFAEL Y MD October 26, 2018 09:09
[2018-10-26] MEDS: LISINOPRIL 10 MG TABLET PO SCH (09:34)
[2018-10-26] MEDS: ASPIRIN ENTERIC COATED 81 MG TABLET.DR. PO SCH (09:35)
[2018-10-26] MEDS: LIDOCAINE (700MG/PATCH) PATCH. TD SCH (09:36)
--- NOTE | 2018-10-26 09:42 | NUR ---
Loc held for possible MRCP. Patient verb. understanding POC.
[2018-10-26] MEDS: ONDANSETRON PF 4 MG/2 ML VIAL. IV PRN (12:47)
[2018-10-26] MEDS: MORPHINE SULFATE 4 MG/ML VIAL. IV PRN ×3 (12:47→19:47)
--- NOTE | 2018-10-26 12:56 | PDOC ---
Subjective: Subjective: "Gas pain." "I had a big fart earlier." Can't tell me if he ate. Objective: Objective: D/w Dr. Duarte earlier - she ordered MRCP as he is unlikely to f/u as outpt. Vital Signs: Vital Signs Date Time Temp Pulse Resp B/P (MAP) Pulse Ox O2 Delivery O2 Flow Rate FiO2 10/26/18 12:47 20 Room Air 10/26/18 11:00 98.2 80 170/87 (114) 90 98.2 Labs: Laboratory Tests Test 10/26/18 03:50 Lipase 461 U/L PE: GEN: NAD LUNGS: CTAB HEART: RRR ABD: RLQ/right periumbilical tenderness - he pushes my hand and stethoscope away similar to yesterday - "would you just stop it?!" NEURO/PSYCH: A & O, maybe confused A/P: Abd pain, dementia, debility Abnormal pancreas imaging - CA19-9 pending -- Difficult exam and history. ?plans for MRCP SUZANNE ARCHER October 26, 2018 12:56
[2018-10-26] MEDS: PATCH REMOVAL. MC SCH (21:00)
[2018-10-27 03:38] VITALS: BP 141/72
[2018-10-27 07:00] VITALS: BP 131/69
[2018-10-27] MEDS: PANTOPRAZOLE 40 MG TABLET.DR. PO SCH (07:30)
[2018-10-27] MEDS: ASPIRIN ENTERIC COATED 81 MG TABLET.DR. PO SCH (08:00)
[2018-10-27] MEDS: POLYETHYLENE GLYCOL 3350 17 GM PACKET. PO SCH (08:03)
[2018-10-27] MEDS: LISINOPRIL 10 MG TABLET PO SCH (08:03)
[2018-10-27] MEDS: LIDOCAINE (700MG/PATCH) PATCH. TD SCH (09:00)
[2018-10-27] MEDS ORDERED: LISI10TA2 PO (09:04)
[2018-10-27] MEDS ORDERED: ASPI-612 PO (09:04)
--- NOTE | 2018-10-27 09:04 | SNU/HH DC ---
DISCHARGE WITH HOME HEALTH DISCHARGE INFORMATION: Discharge Date: October 27, 2018 Final Diagnosis: Problems Medical Problems: (1) Acute cervical sprain Status: Acute (2) Acute prostatitis Status: Acute (3) Nausea and vomiting Status: Acute (4) Need for social work case manager intervention Status: Acute (5) NSTEMI (non-ST elevated myocardial infarction) Status: Acute (6) Scalp contusion Status: Acute Condition on Discharge: Stable CODE STATUS: Code Status: Full HOME HEALTH: Face to Face: I certify this patient is under my care and that I, or a nurse practitioner or physician's social research assistant working with me, had a face to face encounter that meets the physician face to face encounter requirements with this patient on []. RN For Eval/Treatment: Yes Physical Therapy For: Evalulation/Treatment Occupational Therapy For: Evaluation/Treatment Speech Language Pathology For: Evaluation/Treatment Home Health Aide For: Self-care DYE HOUSE HELPER For: Community Resources Pt Meets Homebound Status: Poor coordination w/ amb., Unsteady balance w/ amb, POST DISCHARGE ORDERS: Activity Instructions for Disc: Activity as tolerated Weight Bearing Status after Di: As tolerated DIET AFTER DISCHARGE: Regular CHECKS AFTER DISCHARGE: Checks after discharge: Check blood press - daily FOLLOW-UP: Follow up with: advised OP MRCP TREATMENT/EQUIPMENT ORDERS: Adaptive Equipment Issued: None CERTIFICATION STATEMENT: Certification Statement: Certification Statement: Based on the above finding, I certify that this patient is confined to the home and needs intermittent fdc care, physical therapy and/or speech therapy, or continues to need occupational therapy.~ This patient is under my care, and I have initiated the establishment of the plan of care.~ This patient will be followed by myself or a community physician who will periodically review the plan of care. Home Meds Active Scripts Aspirin (ASPIRIN EC) 81 Mg Tablet., 81 MG PO DAILYWBKFT for htn MDD 1, #60 TAB.SR Prov:RAFAEL WU MD 10/27/18 Lisinopril (LISINOPRIL) 10 Mg Tablet, 10 MG PO DAILY for htn MDD 1, #60 TAB Prov:RAFAEL WU MD 10/27/18 Lidocaine (LIDODERM) 1 Patch Patch, 1 PATCH TD DAILY, #10 BOT Prov:CLAUDE APODACA MD 09/22/14 Fluticasone/Salmeterol (ADVAIR 250-50 DISKUS) 1 Puff Puff, 1 PUFF INH BID, #1 APPLIC Prov:CLAUDE APODACA MD 09/22/14 Amlodipine Besylate (NORVASC) 10 Mg Tablet, 10 MG PO DAILY, #30 BOT Prov:CLAUDE APODACA MD 09/22/14 Reported Medications Pantoprazole Sodium (PANTOPRAZOLE SODIUM) 40 Mg Tablet.dr, 40 MG PO DAILY, TAB 10/09/14 RAFAEL WU MD October 27, 2018 09:04
--- NOTE | 2018-10-27 09:09 | PDOC3 ---
Discharge Summary Visit Information Date of Admission: October 24, 2018 Date of Discharge: October 27, 2018 Admitting Diagnosis Comment: ? pancreatitis, elevated lipase ? significance Diminished LV function-EF 45-50 SIRS secondary to above with no organ dysfunction History GERD per documentation Was unkempt on admission -Social issues ? Final Diagnosis Problems Medical Problems: (1) Acute cervical sprain Status: Acute (2) Acute prostatitis Status: Acute (3) Nausea and vomiting Status: Acute (4) Need for social insurance analyst intervention Status: Acute (5) NSTEMI (non-ST elevated myocardial infarction) Status: Acute (6) Scalp contusion Status: Acute Brief Hospital Course Allergies Allergies Coded Allergies Type Severity Reaction Last Updated Verified No Known Drug Allergies 08/01/13 No Vital Signs Vital Signs Date Time Temp Pulse Resp B/P (MAP) Pulse Ox O2 Delivery O2 Flow Rate FiO2 10/27/18 03:38 98.2 51 19 141/72 (95) 92 Room Air 98.2 Lab Results Laboratory Tests Test 10/26/18 03:50 Lipase 461 U/L (73-393) Brief Hospital Course Mr. Rosario is a 83 old white male who lives at home and cares for his disabled 40 yo daughter admitted bec of mild elevation in lipase 400s, with no CT findings of pancreatitis - may be some dilated ducts, elevated LFTs and was very unkempt. He admitted he has not bathed for 8 months. GI consulted, advises for outpatient MRCP or MRI which could not be done as inpatient. ? Significance of the lipase. Tolerating diet fine with no pain. PT recommended SNU, was orthostatic too, but he only wants to go back home to take care of this 40-year-old disabled daughter. I rxd abdominal binder Echo done diminished EF 45-50. Supposed to be on Norvasc, doubt he's taking. Cardiology start lisinopril and aspirin 81. I have written all the scripts. Emphasized to him to do outpatient MRCP, CA-19-9 pending on discharge. There was some minor weight loss and elevated LFTs and dilated duct?. Hence need to rule out malignancy. But then again again as mentioned above could not do MRCP as inpatient. Significant time discussing with multiple staff, including case management/social media intern, CHAR FILTER OPERATOR, and patient He will need a cab ride, or else he has to call his neighbor to pick him up Discussed with RN, patient seen and examined Consults performed GI, at cardiology Procedures performed echo, CT scan abdomen pelvis Discharge Information Scheduled Amlodipine Besylate (Norvasc) 10 Mg Tablet, 10 MG PO DAILY, #30 Prescribed by: CLAUDE APODACA on 09/22/141328 Last Action: Reviewed on 10/24/18 by Ene Gonzalez Aspirin (Aspirin Ec) 81 Mg Tablet., 81 MG PO DAILYWBKFT for htn MDD 1, #60 Prescribed by: RAFAEL WU on 10/27/18 0904 Fluticasone/Salmeterol (Advair 250-50 Diskus) 1 Puff Puff, 1 PUFF INH BID, #1 Prescribed by: CLAUDE APODACA on 09/22/141328 Last Action: Reviewed on 10/24/18 by Ene Gonzalez Lidocaine (Lidoderm) 1 Patch Patch, 1 PATCH TD DAILY, #10 Prescribed by: CLAUDE APODACA on 09/22/141328 Last Action: Reviewed on 10/24/18 by Ene Gonzalez Lisinopril (Lisinopril) 10 Mg Tablet, 10 MG PO DAILY for htn MDD 1, #60 Prescribed by: RAFAEL WU on 10/27/18 0904 Pantoprazole Sodium (Pantoprazole Sodium) 40 Mg Tablet., 40 MG PO DAILY, (Reported) Entered as Reported by: ROCAEL COLLIER on 10/09/14 5292 Last Action: Reviewed on 10/24/18 by RAFAEL Bynum MD October 27, 2018 09:09
[2018-10-27 11:00] VITALS: BP 129/72
--- NOTE | 2018-10-27 15:08 | NUR ---
Discharge Note: FER VELÁSQUEZ Discharge instructions and discharge home medications reviewed with Patient and a copy given. All questions have been answered and understanding verbalized. Advised to follow up with PCP and recommended MRCP. The following instructions and handouts were given: ACUTE PANCREATITIS. Discontinued lines and drains: Peripheral IV intact. Patient discharged to Home with [facility] via Wheelchair. Patient received a cab pass well at discharge.
== END 2018-10-27 15:00 | disposition home health service (06) | DRG 438 ==
LOC: ER 15:09 → 6 SOUTH 17:38 → 5 NORTH 10-25 17:51
PROVIDERS: ADMIT Family Medicine; ATTEND Family Medicine
DX: K85.90 Acute pancreatitis without necrosis or infection, unspecified (principal); I21.4 Non-ST elevation (NSTEMI) myocardial infarction; I50.22 Chronic systolic (congestive) heart failure; I42.9 Cardiomyopathy, unspecified; N41.0 Acute prostatitis; R65.10 Systemic inflammatory response syndrome (SIRS) of non-infectious origin without acute organ dysfunction; Z68.1 Body mass index [BMI] 19.9 or less, adult; I24.8 Other forms of acute ischemic heart disease; K86.1 Other chronic pancreatitis; S00.03XA Contusion of scalp, initial encounter; I11.0 Hypertensive heart disease with heart failure; E78.00 Pure hypercholesterolemia, unspecified; E78.5 Hyperlipidemia, unspecified; F03.90 Unspecified dementia, unspecified severity, without behavioral disturbance, psychotic disturbance, mood disturbance, and anxiety; K86.89 Other specified diseases of pancreas; F17.210 Nicotine dependence, cigarettes, uncomplicated; S13.4XXA Sprain of ligaments of cervical spine, initial encounter; M19.90 Unspecified osteoarthritis, unspecified site; W18.39XA Other fall on same level, initial encounter; J43.9 Emphysema, unspecified; K21.9 Gastro-esophageal reflux disease without esophagitis; M06.9 Rheumatoid arthritis, unspecified; M47.9 Spondylosis, unspecified; M50.30 Other cervical disc degeneration, unspecified cervical region; N20.0 Calculus of kidney; Z79.51 Long term (current) use of inhaled steroids; Z79.899 Other long term (current) drug therapy; Z82.49 Family history of ischemic heart disease and other diseases of the circulatory system; Z86.73 Personal history of transient ischemic attack (TIA), and cerebral infarction without residual deficits; Z83.3 Family history of diabetes mellitus; Y93.89 Activity, other specified; Y92.89 Other specified places as the place of occurrence of the external cause; Y99.8 Other external cause status
CPT/HCPCS: 36415; 70450; 71045; 72125; 74177; 80053; 80061; 80307; 82553; 82962; 83690; 83735; 83880; 84443; 84484; 85025; 86301; 93005; 93306; 96361; 96374; 96375; 96376; J2270; J2405; J7030; Q9967; 97530; 97535; 99285-25

== ENCOUNTER 2020-06-22 06:45 | Emergency (ER) | payer MEDICARE ==
[~2020-06-22] VITALS: Ht 170.2 cm; Wt 51.0 kg
[~2020-06-22 06:45] MED LIST changes: +ASPI-886 PO; +LISI10TA2 PO; -PANT40TA5 PO; +PANT40TA77 PO
--- NOTE | 2020-06-22 06:58 | PHYS DOC ---
Past Medical History Past Medical History: Arthritis, GERD, High Cholesterol, Hypertension Past Surgical History: Other Additional Past Surgical Histo: Pt had EGD "& no ulcer or anything", TOE, HERNIA Smoking Status: Current Every Day Smoker Alcohol Use: None Drug Use: None General Adult EDM: Chief Complaint: OTHER COMPLAINTS HPI: HPI: Patient is a 85 year old male who was brought here from the half-way for a G-tube replacement. group home reported that patient had a G-tube in place due to history of stroke, patient was just discharged from 2 days ago to the half-way for rehab. Staff reported that the G-tube was in place at 2:30 AM this morning however at 6 AM this morning during shift change they noted G-tube was out on the bed. Therefore they sent him here for replacement. Patient is nonverbal. Review of Systems: Review of Systems: Not able to obtain due to condition. Heart Score: Risk Factors: Risk Factors: DM, Current or recent (<one month) smoker, HTN, HLP, family history of CAD, obesity. Risk Scores: Score 0 - 3: 2.5% MACE over next 6 weeks - Discharge Home Score 4 - 6: 20.3% MACE over next 6 weeks - Admit for Clinical Observation Score 7 - 10: 72.7% MACE over next 6 weeks - Early Invasive Strategies Allergies: Allergies: Allergies Coded Allergies Type Severity Reaction Last Updated Verified No Known Drug Allergies 08/01/13 No Physical Exam: PE: Constitutional: Well developed, well nourished, no acute distress, non-toxic appearance. [] HENT: Normocephalic, atraumatic, bilateral external ears normal, oropharynx moist, no oral exudates, nose normal. [] Eyes: PERRLA, EOMI, conjunctiva normal, no discharge. [] Neck: Normal range of motion, no tenderness, supple, no stridor. [] Cardiovascular:Heart rate regular rhythm, no murmur [] Lungs & Thorax: Bilateral breath sounds clear to auscultation [] Abdomen: Bowel sounds normal, soft, no tenderness, no masses, no pulsatile masses. There is small stoma between two plastic buttons being sutured in placed. There is no bleeding. Skin: Warm, dry, no erythema, no rash. [] Back: No tenderness, no CVA tenderness. [] Extremities: No tenderness, no cyanosis, no clubbing, ROM intact, no edema. [] Neurologic: awake, alert, nonverbal. Psychologic: not able to evaluate due to condition. EKG: EKG: [] Radiology/Procedures: Radiology/Procedures: G-TUBE REPLACEMENT PROCEDURE: A 18 F KANGAROO G-TUBE WITH Y PORT was inserted into the existing stoma without any problem. 20 ML OF SALINE was injected to inflate the balloon. Gastric content noted. KUB xray confirmed placement. Patient tolerate procedure well. [facility] [address] [place] [address] IMAGING REPORT Signed PATIENT: FER VELÁSQUEZ ACCOUNT: [id number] : 1935 LOCATION: ER AGE: 85 SEX: M EXAM STATUS: REG ER ORD. PHYSICIAN: TAMAR WILKINS DO REASON: G-TUBE REPLACEMENT 40 cc Omnipaque 240 was used PROCEDURE: KUB Study: XR ABDOMEN 1V Indication: G-tube replacement. Comparison: CT abdomen/pelvis 10/23/2018 Findings: 40 cc Omnipaque 240 instilled through a gastrostomy tube. Contrast opacifies the stomach and a portion of the duodenum. The bowel gas pattern on this single obtained view is nonobstructive. Moderate volume well-formed stool within the rectum. Vertically oriented opacity abutting the left hemidiaphragm is not fully evaluated but suggestive of atelectasis. Impression: Well-positioned gastrostomy tube with administered contrast opacifying the stomach and a portion of the duodenum. Electronically signed by: MICHELLE BERNSTEIN MD (06/22/2020 8:30 AM) [id number] DICTATED and SIGNED BY: MICHELLE BERNSTEIN MD DATE: 06/22/20 [id number] 0 Course & Med Decision Making: Course & Med Decision Making Pertinent Labs and Imaging studies reviewed. (See chart for details) [] Dragon Disclaimer: Dragon Disclaimer: This electronic medical record was generated, in whole or in part, using a voice recognition dictation system. Departure Departure Impression: Primary Impression: Encounter for feeding tube placement Disposition: 05 DC/TRF OTHER TYPE INSTITUTI (half-way) Condition: STABLE Referrals: COLT JAMESON DO (PCP) Patient Instructions: Gastric Tube Replacement TAMAR WILKINS DO Jun 22, 2020 06:58
[2020-06-22] MEDS ORDERED: IOHEXOL 240 MG/ML 50ML VIAL. ONE (07:40)
[2020-06-22] MEDS ORDERED: IOHEXOL 240 MG/ML 50ML VIAL. IJ ONE (07:45)
[2020-06-22] MEDS ORDERED: CONTRAST GIVEN. MC PRN (08:00)
[2020-06-22 08:30] VITALS: BP 128/61
--- NOTE | 2020-06-22 08:33 | RAD ---
Study: XR ABDOMEN 1V Indication: G-tube replacement. Comparison: CT abdomen/pelvis 10/23/2018 Findings: 40 cc Omnipaque 240 instilled through a gastrostomy tube. Contrast opacifies the stomach and a portio n of the duodenum. The bowel gas pattern on this single obtained view is nonobstructive. Moderate vol ume well-formed stool within the rectum. Vertically oriented opacity abutting the left hemidiaphragm is not fully evaluated but suggestive of atelectasis. Impression: Well-positioned gastrostomy tube with administered contrast opacifying the stomach and a portion of t he duodenum. Electronically signed by: MICHELLE BERNSTEIN MD (06/22/2020 8:30 AM) [id number]
== END 2020-06-22 09:54 | disposition home or self-care (01) ==
LOC: ER 06:45
DX: K94.23 Gastrostomy malfunction (principal); K21.9 Gastro-esophageal reflux disease without esophagitis; E78.00 Pure hypercholesterolemia, unspecified; I10 Essential (primary) hypertension; F17.200 Nicotine dependence, unspecified, uncomplicated; Y83.8 Other surgical procedures as the cause of abnormal reaction of the patient, or of later complication, without mention of misadventure at the time of the procedure; Y82.8 Other medical devices associated with adverse incidents
CPT/HCPCS: 43762; 74018; 99284; Q9966